=== PATIENT | male | born 1940 | race Caucasian/White ===

== ENCOUNTER 2021-10-31 13:23 | Inpatient (IN) | payer MEDICARE ==
[2021-10-31] MEDS ORDERED: Dexamethasone 10 MG/ML VIAL ONE (13:39)
[2021-10-31 14:16] LABS: #Lymphocytes 0.4 thou/uL (1.20-3.40); #Monocytes 0.1 thou/uL (0.11-0.59); #Neutrophils 2.7 thou/uL (1.40-6.50); %Eosinophils 0.1 % (0.0-10.0); %Lymphocytes 13.4 % (21.0-51.0); %Monocytes 4.2 % (0.0-10.0); %Neutrophils 82.3 % (42.0-75.0); Hemoglobin 9.8 g/dL (14.0-18.0); Mean Corpuscular HGB CONC 34.4 g/dL (32.0-36.0); Mean Corpuscular Hemoglobin 34.2 pg (27.0-31.0); Mean Corpuscular Volume 99.4 fL (78.0-98.0); Platelet Count 175 thou/uL (130-400); RBC Distribution Width 11.7 % (11.5-14.5); Red Blood Cell (RBC) Count 2.85 mill/uL (4.70-6.10); White Blood Cell (WBC) Count 3.3 thou/uL (4.8-10.8)
[2021-10-31 14:39] LABS: ALT (SGPT) 68 U/L (8-55); AST (SGOT) 81 U/L (5-34); Alkaline Phosphatase 84 U/L (40-110); Anion Gap 13 mmol/L (10-20); BUN (Urea Nitrogen) 36 mg/dL (8.4-25.7); Bilirubin, Total 0.6 mg/dL (0.2-1.2); Calc. Creatinine Clearance 0 mL/min (70-130); Calcium 8.4 mg/dL (7.8-10.44); Carbon Dioxide 20 mmol/L (23-31); Chloride 102 mmol/L (98-107); Globulin 3.7 g/dL (2.4-3.5); Glucose 107 mg/dL (83-110); Potassium 4.4 mmol/L (3.5-5.1); Protein, Total 6.7 g/dL (5.8-8.1); Sodium 131 mmol/L (136-145)
[2021-10-31] MEDS ORDERED: Iopamidol-370 76% 500 ML 1 ML ONE (14:41)
[2021-10-31] MEDS ORDERED: Acetaminophen 325 MG TAB PO PRN (21:30)
[2021-10-31] MEDS ORDERED: Sodium Chloride 0.9% 1,000 ML IV SCH (21:30)
[2021-10-31] MEDS ORDERED: Ondansetron PF 4 MG/2 ML Vial IVP PRN (21:30)
[2021-10-31] MEDS ORDERED: Ondansetron ODT 4 MG TAB SL PRN (21:30)
[2021-11-01 07:45] LABS: #Lymphocytes 0.5 thou/uL (1.20-3.40); #Monocytes 0.2 thou/uL (0.11-0.59); #Neutrophils 2.2 thou/uL (1.40-6.50); %Lymphocytes 16.7 % (21.0-51.0); %Monocytes 5.7 % (0.0-10.0); %Neutrophils 77.6 % (42.0-75.0); Hemoglobin 9.8 g/dL (14.0-18.0); Mean Corpuscular HGB CONC 34.6 g/dL (32.0-36.0); Mean Corpuscular Hemoglobin 34.4 pg (27.0-31.0); Mean Corpuscular Volume 99.5 fL (78.0-98.0); Mean Platelet Volume 6.4 fL (7.4-10.4); Platelet Count 170 thou/uL (130-400); RBC Distribution Width 11.5 % (11.5-14.5); Red Blood Cell (RBC) Count 2.84 mill/uL (4.70-6.10); White Blood Cell (WBC) Count 2.9 thou/uL (4.8-10.8)
[2021-11-01 08:04] LABS: Anion Gap 13 mmol/L (10-20); BUN (Urea Nitrogen) 34 mg/dL (8.4-25.7); Calc. Creatinine Clearance 37 mL/min (70-130); Calcium 8.8 mg/dL (7.8-10.44); Carbon Dioxide 20 mmol/L (23-31); Chloride 105 mmol/L (98-107); Glucose 121 mg/dL (83-110); Potassium 4.3 mmol/L (3.5-5.1); Sodium 134 mmol/L (136-145)
[2021-11-01 08:08] LABS: ALT (SGPT) 67 U/L (8-55); AST (SGOT) 76 U/L (5-34); Albumin 2.9 g/dL (3.4-4.8); Alkaline Phosphatase 85 U/L (40-110); Bilirubin, Direct 0.3 mg/dL (0.1-0.3); Bilirubin, Total 0.5 mg/dL (0.2-1.2); Protein, Total 6.8 g/dL (5.8-8.1)
[2021-11-01] MEDS: Dexamethasone 10 MG/ML VIAL SLOW IVP SCH (08:16)
[2021-11-01] MEDS: Ascorbic Acid 500 mg Chewable Tablet PO SCH (08:17)
[2021-11-01] MEDS: Zinc Sulfate 220 MG CAP PO SCH (08:17)
[2021-11-01] MEDS: Enoxaparin Sodium 30 MG/0.3 ML SYRINGE SC SCH (08:17)
[2021-11-01] MEDS ORDERED: Famotidine 20 MG TAB PO SCH (09:00)
[2021-11-01] MEDS ORDERED: Guaifenesin DM 100-10/5 ML UDCUP PO PRN (09:08)
[2021-11-01] MEDS ORDERED: Albuterol Sulfate 2.5 mg/3 ml Neb IPPB PRN (09:10)
[2021-11-01] MEDS ORDERED: REMDESIVIR 200 MG in Sodium Chloride 0.9% 250 ML 210 ML IV SCH (10:15)
[2021-11-01] MEDS: Acetaminophen 325 MG TAB PO PRN (11:18)
[2021-11-01] MEDS: Ondansetron PF 4 MG/2 ML Vial IVP PRN (11:18)
[2021-11-01] MEDS: Ipratropium Bromide 0.06% Nasal Inhaler 15ml EA NARE SCH ×3 (13:00→21:55)
[2021-11-01] MEDS: HYDROcodone/Acetaminophen 5/325 mg Tablet PO PRN (17:10)
[2021-11-01] MEDS ORDERED: Calcium Carbonate 500 MG ChewTAB PO SCH (19:14)
[2021-11-01] MEDS: Tamsulosin HCl 0.4 MG CAP PO SCH (21:55)
[2021-11-01] MEDS: Melatonin 3 MG TAB PO SCH (21:55)
[2021-11-01] MEDS: Atorvastatin Calcium 20 MG TAB PO SCH (21:58)
[2021-11-02] MEDS: Dexamethasone 10 MG/ML VIAL SLOW IVP SCH (09:13)
[2021-11-02] MEDS: Ascorbic Acid 500 mg Chewable Tablet PO SCH (09:13)
[2021-11-02] MEDS: Ipratropium Bromide 0.06% Nasal Inhaler 15ml EA NARE SCH ×4 (09:13→20:06)
[2021-11-02] MEDS: REMDESIVIR 100 MG in Sodium Chloride 0.9% 250 ML 230 ML IV SCH (09:13)
[2021-11-02] MEDS: Enoxaparin Sodium 30 MG/0.3 ML SYRINGE SC SCH (09:14)
[2021-11-02] MEDS: Zinc Sulfate 220 MG CAP PO SCH (09:14)
[2021-11-02] MEDS: Metoprolol Tartrate 50 MG TAB PO SCH (09:14)
[2021-11-02 10:19] LABS: #Lymphocytes 0.7 thou/uL (1.20-3.40); #Monocytes 0.3 thou/uL (0.11-0.59); #Neutrophils 6.7 thou/uL (1.40-6.50); %Eosinophils 0.1 % (0.0-10.0); %Lymphocytes 8.4 % (21.0-51.0); %Monocytes 4.4 % (0.0-10.0); %Neutrophils 87.1 % (42.0-75.0); Mean Corpuscular HGB CONC 33.6 g/dL (32.0-36.0); Mean Corpuscular Hemoglobin 33.8 pg (27.0-31.0); Mean Platelet Volume 6.5 fL (7.4-10.4); Platelet Count 221 thou/uL (130-400); RBC Distribution Width 11.6 % (11.5-14.5); Red Blood Cell (RBC) Count 3.25 mill/uL (4.70-6.10); White Blood Cell (WBC) Count 7.7 thou/uL (4.8-10.8)
[2021-11-02 10:36] LABS: Anion Gap 14 mmol/L (10-20); BUN (Urea Nitrogen) 42 mg/dL (8.4-25.7); Calc. Creatinine Clearance 35 mL/min (70-130); Calcium 9.4 mg/dL (7.8-10.44); Carbon Dioxide 22 mmol/L (23-31); Chloride 107 mmol/L (98-107); Glucose 115 mg/dL (83-110); Potassium 4.3 mmol/L (3.5-5.1); Sodium 139 mmol/L (136-145)
[2021-11-02 10:40] LABS: CRP (Inflammatory) 0.69 mg/dL (= or < 0.5)
[2021-11-02 10:44] LABS: Iron 116 ug/dL (65-175); Iron Binding Capacity, Total 171 mcg/dL (261-462)
[2021-11-02] MEDS: Ondansetron PF 4 MG/2 ML Vial IVP PRN (14:00)
[2021-11-02] MEDS: Benzonatate 100 MG CAP PO PRN (18:21)
[2021-11-02] MEDS: Melatonin 3 MG TAB PO SCH (20:07)
[2021-11-02] MEDS: Tamsulosin HCl 0.4 MG CAP PO SCH (20:07)
[2021-11-03 08:17] LABS: Anion Gap 14 mmol/L (10-20); BUN (Urea Nitrogen) 44 mg/dL (8.4-25.7); Calc. Creatinine Clearance 38 mL/min (70-130); Carbon Dioxide 21 mmol/L (23-31); Chloride 105 mmol/L (98-107); Glucose 107 mg/dL (83-110); Potassium 4.2 mmol/L (3.5-5.1); Sodium 136 mmol/L (136-145)
[2021-11-03 08:36] LABS: #Lymphocytes 0.6 thou/uL (1.20-3.40); #Monocytes 0.4 thou/uL (0.11-0.59); #Neutrophils 5.3 thou/uL (1.40-6.50); %Basophils 0.3 % (0.0-1.0); %Eosinophils 0.1 % (0.0-10.0); %Lymphocytes 9.2 % (21.0-51.0); %Monocytes 5.8 % (0.0-10.0); %Neutrophils 84.6 % (42.0-75.0); Hemoglobin 10.3 g/dL (14.0-18.0); Mean Corpuscular HGB CONC 33.1 g/dL (32.0-36.0); Mean Corpuscular Hemoglobin 33.3 pg (27.0-31.0); Mean Platelet Volume 6.6 fL (7.4-10.4); Platelet Count 190 thou/uL (130-400); RBC Distribution Width 11.6 % (11.5-14.5); Red Blood Cell (RBC) Count 3.09 mill/uL (4.70-6.10); White Blood Cell (WBC) Count 6.3 thou/uL (4.8-10.8)
[2021-11-03] MEDS: Ascorbic Acid 500 mg Chewable Tablet PO SCH (10:01)
[2021-11-03] MEDS: Zinc Sulfate 220 MG CAP PO SCH (10:02)
[2021-11-03] MEDS: Enoxaparin Sodium 40 MG/0.4 ML SYRINGE SC SCH (10:02)
[2021-11-03] MEDS: Metoprolol Tartrate 50 MG TAB PO SCH (10:02)
[2021-11-03] MEDS: Dexamethasone 10 MG/ML VIAL SLOW IVP SCH ×2 (10:03→22:16)
[2021-11-03] MEDS: REMDESIVIR 100 MG in Sodium Chloride 0.9% 250 ML 230 ML IV SCH (10:03)
[2021-11-03] MEDS: Ipratropium Bromide 0.06% Nasal Inhaler 15ml EA NARE SCH (10:03)
[2021-11-03] MEDS: HYDROcodone/Acetaminophen 5/325 mg Tablet PO PRN ×2 (15:04→19:37)
[2021-11-03] MEDS: Tamsulosin HCl 0.4 MG CAP PO SCH (22:16)
[2021-11-03] MEDS: Atorvastatin Calcium 20 MG TAB PO SCH ×2 (22:18→22:27)
[2021-11-03] MEDS: Melatonin 3 MG TAB PO SCH (22:18)
[2021-11-04] MEDS: HYDROcodone/Acetaminophen 5/325 mg Tablet PO PRN ×3 (00:24→21:42)
[2021-11-04] MEDS: Ipratropium Bromide 0.06% Nasal Inhaler 15ml EA NARE SCH ×3 (02:30→10:22)
[2021-11-04 04:03] LABS: Anion Gap 13 mmol/L (10-20); BUN (Urea Nitrogen) 48 mg/dL (8.4-25.7); CRP (Inflammatory) Less than 0.50 mg/dL (= or < 0.5); Calc. Creatinine Clearance 39 mL/min (70-130); Calcium 8.9 mg/dL (7.8-10.44); Carbon Dioxide 22 mmol/L (23-31); Chloride 106 mmol/L (98-107); Glucose 145 mg/dL (83-110); Potassium 4.9 mmol/L (3.5-5.1); Sodium 136 mmol/L (136-145)
[2021-11-04 04:26] LABS: Band 9 % (5-11); Hemoglobin 10.2 g/dL (14.0-18.0); Lymphocytes 7 % (21-51); MDiff Complete? YES; Mean Corpuscular HGB CONC 33.7 g/dL (32.0-36.0); Mean Corpuscular Hemoglobin 33.7 pg (27.0-31.0); Mean Platelet Volume 6.6 fL (7.4-10.4); Monocytes 2 % (0-10); Neutrophil 82 % (42-75); Platelet Count 178 thou/uL (130-400); RBC Distribution Width 11.5 % (11.5-14.5); Red Blood Cell (RBC) Count 3.02 mill/uL (4.70-6.10); White Blood Cell (WBC) Count 4.9 thou/uL (4.8-10.8)
[2021-11-04] MEDS: Ascorbic Acid 500 mg Chewable Tablet PO SCH (10:17)
[2021-11-04] MEDS: Zinc Sulfate 220 MG CAP PO SCH (10:17)
[2021-11-04] MEDS: Metoprolol Tartrate 50 MG TAB PO SCH (10:17)
[2021-11-04] MEDS: Dexamethasone 10 MG/ML VIAL SLOW IVP SCH (10:18)
[2021-11-04] MEDS: Enoxaparin Sodium 40 MG/0.4 ML SYRINGE SC SCH (10:19)
[2021-11-04] MEDS: REMDESIVIR 100 MG in Sodium Chloride 0.9% 250 ML 230 ML IV SCH (13:01)
[2021-11-04] MEDS: Benzonatate 100 MG CAP PO PRN (21:42)
[2021-11-04] MEDS: Tamsulosin HCl 0.4 MG CAP PO SCH (21:42)
[2021-11-04] MEDS: Melatonin 3 MG TAB PO SCH (21:42)
[2021-11-05 04:04] LABS: #Lymphocytes 0.7 thou/uL (1.20-3.40); #Monocytes 0.3 thou/uL (0.11-0.59); #Neutrophils 5.3 thou/uL (1.40-6.50); %Lymphocytes 11.5 % (21.0-51.0); %Monocytes 4.9 % (0.0-10.0); %Neutrophils 83.5 % (42.0-75.0); Hemoglobin 10.4 g/dL (14.0-18.0); Mean Corpuscular HGB CONC 33.9 g/dL (32.0-36.0); Mean Corpuscular Hemoglobin 33.5 pg (27.0-31.0); Mean Corpuscular Volume 98.9 fL (78.0-98.0); Platelet Count 179 thou/uL (130-400); RBC Distribution Width 11.5 % (11.5-14.5); Red Blood Cell (RBC) Count 3.11 mill/uL (4.70-6.10); White Blood Cell (WBC) Count 6.3 thou/uL (4.8-10.8)
[2021-11-05 04:15] LABS: Anion Gap 15 mmol/L (10-20); BUN (Urea Nitrogen) 47 mg/dL (8.4-25.7); CRP (Inflammatory) Less than 0.50 mg/dL (= or < 0.5); Calc. Creatinine Clearance 39 mL/min (70-130); Carbon Dioxide 20 mmol/L (23-31); Chloride 104 mmol/L (98-107); Glucose 122 mg/dL (83-110); Potassium 4.2 mmol/L (3.5-5.1); Sodium 135 mmol/L (136-145)
[2021-11-05] MEDS: HYDROcodone/Acetaminophen 5/325 mg Tablet PO PRN ×3 (06:05→21:33)
[2021-11-05] MEDS: Ipratropium Bromide 0.06% Nasal Inhaler 15ml EA NARE SCH ×5 (09:48→20:34)
[2021-11-05] MEDS: Zinc Sulfate 220 MG CAP PO SCH (10:05)
[2021-11-05] MEDS: REMDESIVIR 100 MG in Sodium Chloride 0.9% 250 ML 230 ML IV SCH (10:05)
[2021-11-05] MEDS: Ascorbic Acid 500 mg Chewable Tablet PO SCH (10:05)
[2021-11-05] MEDS: Enoxaparin Sodium 40 MG/0.4 ML SYRINGE SC SCH (10:06)
[2021-11-05] MEDS: Metoprolol Tartrate 50 MG TAB PO SCH (10:06)
[2021-11-05] MEDS: Dexamethasone 10 MG/ML VIAL SLOW IVP SCH (10:06)
[2021-11-05] MEDS: Tamsulosin HCl 0.4 MG CAP PO SCH (20:07)
[2021-11-05] MEDS: Melatonin 3 MG TAB PO SCH (20:07)
[2021-11-05] MEDS: Atorvastatin Calcium 20 MG TAB PO SCH (20:07)
[2021-11-06] MEDS: HYDROcodone/Acetaminophen 5/325 mg Tablet PO PRN ×3 (03:22→17:53)
[2021-11-06 07:23] LABS: #Lymphocytes 0.7 thou/uL (1.20-3.40); #Monocytes 0.3 thou/uL (0.11-0.59); #Neutrophils 7.4 thou/uL (1.40-6.50); %Basophils 0.1 % (0.0-1.0); %Eosinophils 0.2 % (0.0-10.0); %Lymphocytes 8.2 % (21.0-51.0); %Monocytes 3.6 % (0.0-10.0); Hemoglobin 11.2 g/dL (14.0-18.0); Mean Corpuscular HGB CONC 32.5 g/dL (32.0-36.0); Mean Corpuscular Hemoglobin 32.5 pg (27.0-31.0); Mean Corpuscular Volume 99.9 fL (78.0-98.0); Mean Platelet Volume 7.2 fL (7.4-10.4); Platelet Count 191 thou/uL (130-400); RBC Distribution Width 11.7 % (11.5-14.5); Red Blood Cell (RBC) Count 3.46 mill/uL (4.70-6.10); White Blood Cell (WBC) Count 8.4 thou/uL (4.8-10.8)
[2021-11-06 07:41] LABS: Anion Gap 14 mmol/L (10-20); BUN (Urea Nitrogen) 49 mg/dL (8.4-25.7); Calc. Creatinine Clearance 37 mL/min (70-130); Carbon Dioxide 22 mmol/L (23-31); Chloride 104 mmol/L (98-107); Glucose 103 mg/dL (83-110); Potassium 4.1 mmol/L (3.5-5.1); Sodium 136 mmol/L (136-145)
[2021-11-06] MEDS: Metoprolol Tartrate 50 MG TAB PO SCH (08:18)
[2021-11-06] MEDS: Dexamethasone 10 MG/ML VIAL SLOW IVP SCH (08:18)
[2021-11-06] MEDS: Ascorbic Acid 500 mg Chewable Tablet PO SCH (08:18)
[2021-11-06] MEDS: Zinc Sulfate 220 MG CAP PO SCH (08:18)
[2021-11-06] MEDS: Enoxaparin Sodium 40 MG/0.4 ML SYRINGE SC SCH (08:19)
[2021-11-06] MEDS: Ipratropium Bromide 0.06% Nasal Inhaler 15ml EA NARE SCH ×3 (12:13→21:20)
[2021-11-06] MEDS: ALPRAZolam 0.25 MG TAB PO PRN (17:53)
[2021-11-06] MEDS: Tamsulosin HCl 0.4 MG CAP PO SCH (21:24)
[2021-11-06] MEDS: Melatonin 3 MG TAB PO SCH (21:25)
[2021-11-07] MEDS: Albuterol 200 PUFF (6.7GM INHALER) INH PRN ×2 (00:53→09:10)
[2021-11-07] MEDS: ALPRAZolam 0.25 MG TAB PO PRN ×3 (01:08→15:43)
[2021-11-07] MEDS: Zinc Sulfate 220 MG CAP PO SCH (09:09)
[2021-11-07] MEDS: Metoprolol Tartrate 50 MG TAB PO SCH (09:09)
[2021-11-07] MEDS: Enoxaparin Sodium 40 MG/0.4 ML SYRINGE SC SCH (09:09)
[2021-11-07] MEDS: Ascorbic Acid 500 mg Chewable Tablet PO SCH ×2 (09:09→09:12)
[2021-11-07] MEDS: Dexamethasone 10 MG/ML VIAL SLOW IVP SCH (09:09)
[2021-11-07] MEDS: Ipratropium Bromide 0.06% Nasal Inhaler 15ml EA NARE SCH ×4 (09:11→21:02)
[2021-11-07 12:36] LABS: #Lymphocytes 0.3 thou/uL (1.20-3.40); #Monocytes 0.2 thou/uL (0.11-0.59); #Neutrophils 6.1 thou/uL (1.40-6.50); %Basophils 0.1 % (0.0-1.0); %Eosinophils 0.2 % (0.0-10.0); %Lymphocytes 4.5 % (21.0-51.0); %Monocytes 2.9 % (0.0-10.0); %Neutrophils 92.4 % (42.0-75.0); Hemoglobin 10.9 g/dL (14.0-18.0); Mean Corpuscular HGB CONC 32.3 g/dL (32.0-36.0); Mean Corpuscular Hemoglobin 32.5 pg (27.0-31.0); Mean Platelet Volume 7.8 fL (7.4-10.4); Platelet Count 183 thou/uL (130-400); Red Blood Cell (RBC) Count 3.37 mill/uL (4.70-6.10); White Blood Cell (WBC) Count 6.6 thou/uL (4.8-10.8)
[2021-11-07 13:09] LABS: Anion Gap 16 mmol/L (10-20); BUN (Urea Nitrogen) 50 mg/dL (8.4-25.7); Calc. Creatinine Clearance 36 mL/min (70-130); Calcium 9.2 mg/dL (7.8-10.44); Carbon Dioxide 20 mmol/L (23-31); Chloride 106 mmol/L (98-107); Glucose 146 mg/dL (83-110); Potassium 4.2 mmol/L (3.5-5.1); Sodium 138 mmol/L (136-145)
[2021-11-07] MEDS: HYDROcodone/Acetaminophen 5/325 mg Tablet PO PRN ×2 (15:43→21:01)
[2021-11-07] MEDS: Tamsulosin HCl 0.4 MG CAP PO SCH (21:01)
[2021-11-07] MEDS: Melatonin 3 MG TAB PO SCH (21:01)
[2021-11-07] MEDS: Atorvastatin Calcium 20 MG TAB PO SCH (21:02)
[2021-11-08] MEDS: HYDROcodone/Acetaminophen 5/325 mg Tablet PO PRN (07:37)
[2021-11-08] MEDS: Enoxaparin Sodium 40 MG/0.4 ML SYRINGE SC SCH (10:53)
[2021-11-08] MEDS: Ascorbic Acid 500 mg Chewable Tablet PO SCH (10:54)
[2021-11-08] MEDS: Acetaminophen 325 MG TAB PO PRN ×2 (10:55→22:01)
[2021-11-08] MEDS: Zinc Sulfate 220 MG CAP PO SCH (10:56)
[2021-11-08] MEDS: Metoprolol Tartrate 50 MG TAB PO SCH (10:57)
[2021-11-08] MEDS: Dexamethasone 10 MG/ML VIAL SLOW IVP SCH (10:59)
[2021-11-08] MEDS: Ipratropium Bromide 0.06% Nasal Inhaler 15ml EA NARE SCH ×4 (11:00→22:02)
[2021-11-08 15:42] LABS: #Lymphocytes 0.3 thou/uL (1.20-3.40); #Monocytes 0.1 thou/uL (0.11-0.59); #Neutrophils 5.5 thou/uL (1.40-6.50); %Eosinophils 0.4 % (0.0-10.0); %Lymphocytes 5.2 % (21.0-51.0); %Monocytes 1.9 % (0.0-10.0); %Neutrophils 92.5 % (42.0-75.0); Hemoglobin 10.7 g/dL (14.0-18.0); Mean Corpuscular HGB CONC 32.6 g/dL (32.0-36.0); Mean Corpuscular Hemoglobin 33.1 pg (27.0-31.0); Mean Platelet Volume 7.3 fL (7.4-10.4); Platelet Count 158 thou/uL (130-400); RBC Distribution Width 12.4 % (11.5-14.5); Red Blood Cell (RBC) Count 3.23 mill/uL (4.70-6.10); White Blood Cell (WBC) Count 5.9 thou/uL (4.8-10.8)
[2021-11-08 16:01] LABS: Anion Gap 13 mmol/L (10-20); BUN (Urea Nitrogen) 49 mg/dL (8.4-25.7); Calc. Creatinine Clearance 35 mL/min (70-130); Calcium 8.8 mg/dL (7.8-10.44); Carbon Dioxide 22 mmol/L (23-31); Chloride 106 mmol/L (98-107); Glucose 145 mg/dL (83-110); Potassium 4.6 mmol/L (3.5-5.1); Sodium 136 mmol/L (136-145)
[2021-11-08] MEDS: Tamsulosin HCl 0.4 MG CAP PO SCH (22:02)
[2021-11-08] MEDS: Melatonin 3 MG TAB PO SCH (22:02)
[2021-11-09] MEDS: ALPRAZolam 0.25 MG TAB PO PRN (05:49)
[2021-11-09] MEDS: Acetaminophen 325 MG TAB PO PRN ×2 (05:49→13:48)
[2021-11-09] MEDS: Ascorbic Acid 500 mg Chewable Tablet PO SCH (09:18)
[2021-11-09] MEDS: Zinc Sulfate 220 MG CAP PO SCH (09:18)
[2021-11-09] MEDS: Cholecalciferol 1,000 UNITS (25 MCG) TAB PO SCH (09:18)
[2021-11-09] MEDS: Ipratropium Bromide 0.06% Nasal Inhaler 15ml EA NARE SCH ×3 (09:20→17:49)
[2021-11-09] MEDS: Enoxaparin Sodium 40 MG/0.4 ML SYRINGE SC SCH (09:20)
[2021-11-09] MEDS: Metoprolol Tartrate 50 MG TAB PO SCH (09:21)
[2021-11-09] MEDS: Acetaminophen/Codeine 30-300mg Tablet PO PRN (10:55)
[2021-11-09] MEDS: Dextrose 5 % And 0.9 % NaCl 1,000 ML IV SCH (17:49)
[2021-11-09] MEDS: Melatonin 3 MG TAB PO SCH (20:45)
[2021-11-09] MEDS: Tamsulosin HCl 0.4 MG CAP PO SCH (20:45)
[2021-11-09] MEDS: HYDROcodone/Acetaminophen 5/325 mg Tablet PO PRN (20:45)
[2021-11-09] MEDS: Atorvastatin Calcium 20 MG TAB PO SCH (20:45)
[2021-11-10 04:46] LABS: #Lymphocytes 0.8 thou/uL (1.20-3.40); #Monocytes 0.2 thou/uL (0.11-0.59); #Neutrophils 5.7 thou/uL (1.40-6.50); %Eosinophils 0.6 % (0.0-10.0); %Lymphocytes 11.4 % (21.0-51.0); %Monocytes 3.6 % (0.0-10.0); %Neutrophils 84.4 % (42.0-75.0); Hemoglobin 10.2 g/dL (14.0-18.0); Mean Corpuscular HGB CONC 33.5 g/dL (32.0-36.0); Mean Corpuscular Hemoglobin 33.8 pg (27.0-31.0); Mean Platelet Volume 7.3 fL (7.4-10.4); Platelet Count 145 thou/uL (130-400); RBC Distribution Width 12.6 % (11.5-14.5); White Blood Cell (WBC) Count 6.7 thou/uL (4.8-10.8)
[2021-11-10 04:51] LABS: Anion Gap 12 mmol/L (10-20); BUN (Urea Nitrogen) 36 mg/dL (8.4-25.7); Calc. Creatinine Clearance 42 mL/min (70-130); Calcium 8.5 mg/dL (7.8-10.44); Carbon Dioxide 22 mmol/L (23-31); Chloride 103 mmol/L (98-107); Glucose 102 mg/dL (83-110); Sodium 133 mmol/L (136-145)
[2021-11-10] MEDS: Ipratropium Bromide 0.06% Nasal Inhaler 15ml EA NARE SCH ×4 (07:26→17:34)
[2021-11-10] MEDS: Zinc Sulfate 220 MG CAP PO SCH (09:56)
[2021-11-10] MEDS: Senokot 8.6 MG TAB PO PRN (09:56)
[2021-11-10] MEDS: Cholecalciferol 1,000 UNITS (25 MCG) TAB PO SCH (09:56)
[2021-11-10] MEDS: Ascorbic Acid 500 mg Chewable Tablet PO SCH (09:56)
[2021-11-10] MEDS: HYDROcodone/Acetaminophen 5/325 mg Tablet PO PRN ×2 (09:57→20:13)
[2021-11-10] MEDS: Enoxaparin Sodium 40 MG/0.4 ML SYRINGE SC SCH (09:58)
[2021-11-10] MEDS: Dextrose 5 % And 0.9 % NaCl 1,000 ML IV SCH ×2 (09:59→23:30)
[2021-11-10] MEDS: Metoprolol Tartrate 50 MG TAB PO SCH (10:00)
[2021-11-10] MEDS ORDERED: Lidocaine 5% Patch TD SCH (14:00)
[2021-11-10] MEDS: Lidocaine 5% Patch TD SCH (17:34)
[2021-11-10] MEDS: Tamsulosin HCl 0.4 MG CAP PO SCH (20:13)
[2021-11-10] MEDS: ALPRAZolam 0.25 MG TAB PO PRN (20:13)
[2021-11-10] MEDS: Melatonin 3 MG TAB PO SCH (20:13)
[2021-11-10] MEDS: Transdermal Patch Removal TOP SCH (20:14)
[2021-11-10] MEDS ORDERED: Cyclobenzaprine 10 MG TAB PO SCH (22:45)
[2021-11-11 03:49] LABS: #Lymphocytes 0.8 thou/uL (1.20-3.40); #Monocytes 0.3 thou/uL (0.11-0.59); #Neutrophils 4.5 thou/uL (1.40-6.50); %Basophils 0.3 % (0.0-1.0); %Eosinophils 0.4 % (0.0-10.0); %Lymphocytes 13.7 % (21.0-51.0); %Monocytes 5.4 % (0.0-10.0); %Neutrophils 80.2 % (42.0-75.0); Hemoglobin 8.9 g/dL (14.0-18.0); Mean Corpuscular HGB CONC 33.1 g/dL (32.0-36.0); Mean Corpuscular Hemoglobin 33.6 pg (27.0-31.0); Mean Platelet Volume 6.5 fL (7.4-10.4); Platelet Count 104 thou/uL (130-400); RBC Distribution Width 12.5 % (11.5-14.5); Red Blood Cell (RBC) Count 2.66 mill/uL (4.70-6.10); White Blood Cell (WBC) Count 5.6 thou/uL (4.8-10.8)
[2021-11-11 04:01] LABS: Anion Gap 11 mmol/L (10-20); BUN (Urea Nitrogen) 21 mg/dL (8.4-25.7); Calc. Creatinine Clearance 51 mL/min (70-130); Carbon Dioxide 23 mmol/L (23-31); Chloride 104 mmol/L (98-107); Glucose 98 mg/dL (83-110); Potassium 3.8 mmol/L (3.5-5.1); Sodium 134 mmol/L (136-145)
[2021-11-11] MEDS ORDERED: Lidocaine 1% (PF) 30 ML VIAL ONE (09:42)
[2021-11-11] MEDS: Ipratropium Bromide 0.06% Nasal Inhaler 15ml EA NARE SCH ×4 (10:35→18:30)
[2021-11-11] MEDS: Enoxaparin Sodium 40 MG/0.4 ML SYRINGE SC SCH (10:42)
[2021-11-11] MEDS: Metoprolol Tartrate 50 MG TAB PO SCH (10:42)
[2021-11-11] MEDS: Zinc Sulfate 220 MG CAP PO SCH (10:44)
[2021-11-11] MEDS: Cholecalciferol 1,000 UNITS (25 MCG) TAB PO SCH (10:44)
[2021-11-11] MEDS: Ascorbic Acid 500 mg Chewable Tablet PO SCH (10:44)
[2021-11-11] MEDS: Lidocaine 5% Patch TD SCH (10:45)
[2021-11-11] MEDS: Dextrose 5 % And 0.9 % NaCl 1,000 ML IV SCH ×2 (13:25→13:36)
[2021-11-11] MEDS: ALPRAZolam 0.25 MG TAB PO PRN (20:36)
[2021-11-11] MEDS: Melatonin 3 MG TAB PO SCH (20:36)
[2021-11-11] MEDS: Tamsulosin HCl 0.4 MG CAP PO SCH (20:36)
[2021-11-11] MEDS: Transdermal Patch Removal TOP SCH (20:37)
[2021-11-11] MEDS: Atorvastatin Calcium 20 MG TAB PO SCH (20:37)
[2021-11-12 04:00] LABS: #Lymphocytes 0.8 thou/uL (1.20-3.40); #Monocytes 0.4 thou/uL (0.11-0.59); #Neutrophils 5.3 thou/uL (1.40-6.50); %Eosinophils 0.4 % (0.0-10.0); %Lymphocytes 11.7 % (21.0-51.0); %Monocytes 6.6 % (0.0-10.0); %Neutrophils 81.3 % (42.0-75.0); Hemoglobin 9.2 g/dL (14.0-18.0); Mean Corpuscular HGB CONC 33.1 g/dL (32.0-36.0); Mean Corpuscular Hemoglobin 33.3 pg (27.0-31.0); Mean Platelet Volume 7.1 fL (7.4-10.4); Platelet Count 112 thou/uL (130-400); RBC Distribution Width 12.5 % (11.5-14.5); Red Blood Cell (RBC) Count 2.77 mill/uL (4.70-6.10); White Blood Cell (WBC) Count 6.5 thou/uL (4.8-10.8)
[2021-11-12 04:17] LABS: Anion Gap 8 mmol/L (10-20); BUN (Urea Nitrogen) 20 mg/dL (8.4-25.7); Calc. Creatinine Clearance 51 mL/min (70-130); Calcium 8.4 mg/dL (7.8-10.44); Carbon Dioxide 23 mmol/L (23-31); Chloride 105 mmol/L (98-107); Glucose 106 mg/dL (83-110); Potassium 3.9 mmol/L (3.5-5.1); Sodium 132 mmol/L (136-145)
[2021-11-12] MEDS: Ipratropium Bromide 0.06% Nasal Inhaler 15ml EA NARE SCH ×5 (09:03→21:28)
[2021-11-12] MEDS: Lidocaine 5% Patch TD SCH (09:16)
[2021-11-12] MEDS: Enoxaparin Sodium 40 MG/0.4 ML SYRINGE SC SCH (09:16)
[2021-11-12] MEDS: Metoprolol Tartrate 50 MG TAB PO SCH (09:17)
[2021-11-12] MEDS: Ascorbic Acid 500 mg Chewable Tablet PO SCH (09:17)
[2021-11-12] MEDS: Zinc Sulfate 220 MG CAP PO SCH (09:18)
[2021-11-12] MEDS: Dextrose 5 % And 0.9 % NaCl 1,000 ML IV SCH (09:18)
[2021-11-12] MEDS: Cholecalciferol 1,000 UNITS (25 MCG) TAB PO SCH (09:18)
[2021-11-12] MEDS ORDERED: Bisacodyl 5 MG TAB PO SCH (19:15)
[2021-11-12] MEDS: Acetaminophen/Codeine 30-300mg Tablet PO PRN (21:27)
[2021-11-12] MEDS: ALPRAZolam 0.25 MG TAB PO PRN (21:28)
[2021-11-12] MEDS: Transdermal Patch Removal TOP SCH (21:28)
[2021-11-12] MEDS: Tamsulosin HCl 0.4 MG CAP PO SCH (21:28)
[2021-11-12] MEDS: Melatonin 3 MG TAB PO SCH (21:28)
[2021-11-13 03:44] LABS: #Lymphocytes 1.1 thou/uL (1.20-3.40); #Monocytes 0.6 thou/uL (0.11-0.59); #Neutrophils 5.3 thou/uL (1.40-6.50); %Basophils 0.1 % (0.0-1.0); %Eosinophils 0.7 % (0.0-10.0); %Lymphocytes 15.9 % (21.0-51.0); %Monocytes 8.9 % (0.0-10.0); %Neutrophils 74.5 % (42.0-75.0); Hemoglobin 9.5 g/dL (14.0-18.0); Mean Corpuscular HGB CONC 32.2 g/dL (32.0-36.0); Mean Corpuscular Hemoglobin 32.5 pg (27.0-31.0); Mean Platelet Volume 6.6 fL (7.4-10.4); Platelet Count 132 thou/uL (130-400); RBC Distribution Width 12.6 % (11.5-14.5); Red Blood Cell (RBC) Count 2.93 mill/uL (4.70-6.10); White Blood Cell (WBC) Count 7.1 thou/uL (4.8-10.8)
[2021-11-13 04:05] LABS: Anion Gap 11 mmol/L (10-20); BUN (Urea Nitrogen) 23 mg/dL (8.4-25.7); Calc. Creatinine Clearance 47 mL/min (70-130); Calcium 8.5 mg/dL (7.8-10.44); Carbon Dioxide 22 mmol/L (23-31); Chloride 106 mmol/L (98-107); Glucose 101 mg/dL (83-110); Potassium 4.2 mmol/L (3.5-5.1); Sodium 135 mmol/L (136-145)
[2021-11-13] MEDS: Enoxaparin Sodium 40 MG/0.4 ML SYRINGE SC SCH (10:19)
[2021-11-13] MEDS: Lidocaine 5% Patch TD SCH (10:19)
[2021-11-13] MEDS: Metoprolol Tartrate 50 MG TAB PO SCH (10:20)
[2021-11-13] MEDS: Zinc Sulfate 220 MG CAP PO SCH (10:20)
[2021-11-13] MEDS: Cholecalciferol 1,000 UNITS (25 MCG) TAB PO SCH (10:21)
[2021-11-13] MEDS: Ascorbic Acid 500 mg Chewable Tablet PO SCH (10:22)
[2021-11-13] MEDS: Ipratropium Bromide 0.06% Nasal Inhaler 15ml EA NARE SCH ×4 (10:24→22:45)
[2021-11-13] MEDS: Senokot 8.6 MG TAB PO PRN (10:29)
[2021-11-13 10:38] VITALS: BMI 21.5
[2021-11-13] MEDS: Dextrose 5 % And 0.9 % NaCl 1,000 ML IV SCH (17:36)
[2021-11-13] MEDS ORDERED: Fleet Enema 133 ML BOT PR SCH (22:30)
[2021-11-13] MEDS: Tamsulosin HCl 0.4 MG CAP PO SCH (22:44)
[2021-11-13] MEDS: ALPRAZolam 0.25 MG TAB PO PRN (22:44)
[2021-11-13] MEDS: Melatonin 3 MG TAB PO SCH (22:44)
[2021-11-13] MEDS: Acetaminophen/Codeine 30-300mg Tablet PO PRN (22:44)
[2021-11-13] MEDS: Transdermal Patch Removal TOP SCH (22:45)
[2021-11-13] MEDS: Atorvastatin Calcium 20 MG TAB PO SCH (22:45)
[2021-11-14] MEDS: Cholecalciferol 1,000 UNITS (25 MCG) TAB PO SCH (10:07)
[2021-11-14] MEDS: Zinc Sulfate 220 MG CAP PO SCH (10:09)
[2021-11-14] MEDS: Metoprolol Tartrate 50 MG TAB PO SCH (10:09)
[2021-11-14] MEDS: Lidocaine 5% Patch TD SCH (10:10)
[2021-11-14] MEDS: Ipratropium Bromide 0.06% Nasal Inhaler 15ml EA NARE SCH ×4 (10:10→21:05)
[2021-11-14] MEDS: Ascorbic Acid 500 mg Chewable Tablet PO SCH (10:10)
[2021-11-14] MEDS: Enoxaparin Sodium 40 MG/0.4 ML SYRINGE SC SCH (10:10)
[2021-11-14] MEDS: ALPRAZolam 0.25 MG TAB PO PRN (21:05)
[2021-11-14] MEDS: Dextrose 5 % And 0.9 % NaCl 1,000 ML IV SCH (21:05)
[2021-11-14] MEDS: Melatonin 3 MG TAB PO SCH (21:05)
[2021-11-14] MEDS: Tamsulosin HCl 0.4 MG CAP PO SCH (21:05)
[2021-11-14] MEDS: Transdermal Patch Removal TOP SCH (22:00)
[2021-11-15] MEDS: Acetaminophen 325 MG TAB PO PRN ×3 (01:05→21:21)
[2021-11-15] MEDS: Senokot 8.6 MG TAB PO PRN (01:05)
[2021-11-15] MEDS: Enoxaparin Sodium 40 MG/0.4 ML SYRINGE SC SCH (08:18)
[2021-11-15] MEDS: Metoprolol Tartrate 50 MG TAB PO SCH (08:20)
[2021-11-15] MEDS: Zinc Sulfate 220 MG CAP PO SCH (08:20)
[2021-11-15] MEDS: Lidocaine 5% Patch TD SCH (08:22)
[2021-11-15] MEDS: Ipratropium Bromide 0.06% Nasal Inhaler 15ml EA NARE SCH ×4 (08:24→21:22)
[2021-11-15] MEDS: Cholecalciferol 1,000 UNITS (25 MCG) TAB PO SCH (08:25)
[2021-11-15] MEDS: Ascorbic Acid 500 mg Chewable Tablet PO SCH (08:25)
[2021-11-15] MEDS: Dextrose 5 % And 0.9 % NaCl 1,000 ML IV SCH (15:58)
[2021-11-15] MEDS: Dicyclomine 10 MG CAP PO SCH ×2 (16:37→21:21)
[2021-11-15] MEDS: ALPRAZolam 0.25 MG TAB PO PRN ×2 (18:32→21:21)
[2021-11-15] MEDS: Tamsulosin HCl 0.4 MG CAP PO SCH (21:20)
[2021-11-15] MEDS: Melatonin 3 MG TAB PO SCH (21:20)
[2021-11-15] MEDS: Transdermal Patch Removal TOP SCH (21:22)
[2021-11-15] MEDS: Atorvastatin Calcium 20 MG TAB PO SCH (21:24)
[2021-11-16] MEDS: Acetaminophen 325 MG TAB PO PRN (05:44)
[2021-11-16 07:58] LABS: Anion Gap 12 mmol/L (10-20); BUN (Urea Nitrogen) 20 mg/dL (8.4-25.7); Calc. Creatinine Clearance 42 mL/min (70-130); Calcium 8.7 mg/dL (7.8-10.44); Carbon Dioxide 19 mmol/L (23-31); Chloride 108 mmol/L (98-107); Glucose 102 mg/dL (83-110); Potassium 4.5 mmol/L (3.5-5.1); Sodium 134 mmol/L (136-145)
[2021-11-16] MEDS: Metoprolol Tartrate 50 MG TAB PO SCH (08:55)
[2021-11-16] MEDS: Cholecalciferol 1,000 UNITS (25 MCG) TAB PO SCH (08:55)
[2021-11-16] MEDS: Polyethylene Glycol 3350 17 GM Packet PO SCH (08:55)
[2021-11-16] MEDS: Ascorbic Acid 500 mg Chewable Tablet PO SCH (08:56)
[2021-11-16] MEDS: Ipratropium Bromide 0.06% Nasal Inhaler 15ml EA NARE SCH ×4 (08:56→20:14)
[2021-11-16] MEDS: Enoxaparin Sodium 40 MG/0.4 ML SYRINGE SC SCH (08:56)
[2021-11-16] MEDS: Zinc Sulfate 220 MG CAP PO SCH (08:56)
[2021-11-16] MEDS: Dicyclomine 10 MG CAP PO SCH ×3 (08:56→17:14)
[2021-11-16] MEDS: Lidocaine 5% Patch TD SCH (09:04)
[2021-11-16] MEDS: Dextrose 5 % And 0.9 % NaCl 1,000 ML IV SCH ×2 (09:11→20:07)
[2021-11-16 10:20] LABS: #Lymphocytes 0.8 thou/uL (1.20-3.40); #Monocytes 0.8 thou/uL (0.11-0.59); #Neutrophils 6.4 thou/uL (1.40-6.50); %Basophils 0.2 % (0.0-1.0); %Eosinophils 0.2 % (0.0-10.0); %Lymphocytes 9.9 % (21.0-51.0); %Monocytes 9.8 % (0.0-10.0); %Neutrophils 79.9 % (42.0-75.0); Mean Corpuscular Hemoglobin 34.9 pg (27.0-31.0); Mean Platelet Volume 6.7 fL (7.4-10.4); Platelet Count 110 thou/uL (130-400); RBC Distribution Width 12.7 % (11.5-14.5)
[2021-11-16] MEDS ORDERED: Electrolyte Replacement Protocol 1 EACH FS SCH (19:45)
[2021-11-16] MEDS: Senokot S 8.6-50 MG TAB PO SCH (20:08)
[2021-11-16] MEDS: Tamsulosin HCl 0.4 MG CAP PO SCH (20:14)
[2021-11-16] MEDS: ALPRAZolam 0.25 MG TAB PO PRN (20:15)
[2021-11-16] MEDS: Melatonin 3 MG TAB PO SCH (20:15)
[2021-11-17] MEDS: Multivit, Therapeutic 1 TAB PO SCH (08:31)
[2021-11-17] MEDS: Aspirin 81 mg Enteric Coated Tablet PO SCH (08:31)
[2021-11-17] MEDS: Cholecalciferol 1,000 UNITS (25 MCG) TAB PO SCH (08:31)
[2021-11-17] MEDS: Senokot S 8.6-50 MG TAB PO SCH ×2 (08:31→20:03)
[2021-11-17] MEDS: Metoprolol Tartrate 50 MG TAB PO SCH (08:32)
[2021-11-17] MEDS: Zinc Sulfate 220 MG CAP PO SCH (08:32)
[2021-11-17] MEDS: Ascorbic Acid 500 mg Chewable Tablet PO SCH (08:32)
[2021-11-17] MEDS: Polyethylene Glycol 3350 17 GM Packet PO SCH (08:32)
[2021-11-17] MEDS: Enoxaparin Sodium 40 MG/0.4 ML SYRINGE SC SCH (08:33)
[2021-11-17 09:04] LABS: Anion Gap 10 mmol/L (10-20); BUN (Urea Nitrogen) 16 mg/dL (8.4-25.7); CRP (Inflammatory) 1.26 mg/dL (= or < 0.5); Calc. Creatinine Clearance 52 mL/min (70-130); Calcium 8.3 mg/dL (7.8-10.44); Carbon Dioxide 23 mmol/L (23-31); Chloride 108 mmol/L (98-107); Glucose 95 mg/dL (83-110); Magnesium 1.8 mg/dL (1.6-2.6); Phosphorus 2.7 mg/dL (2.3-4.7); Potassium 3.6 mmol/L (3.5-5.1); Sodium 137 mmol/L (136-145)
[2021-11-17 09:05] LABS: #Lymphocytes 0.8 thou/uL (1.20-3.40); #Monocytes 0.6 thou/uL (0.11-0.59); #Neutrophils 3.6 thou/uL (1.40-6.50); %Eosinophils 0.9 % (0.0-10.0); %Lymphocytes 15.7 % (21.0-51.0); %Monocytes 12.2 % (0.0-10.0); %Neutrophils 71.2 % (42.0-75.0); Hemoglobin 7.5 g/dL (14.0-18.0); Mean Corpuscular HGB CONC 32.7 g/dL (32.0-36.0); Mean Corpuscular Hemoglobin 33.8 pg (27.0-31.0); Mean Platelet Volume 6.9 fL (7.4-10.4); Platelet Count 107 thou/uL (130-400); Red Blood Cell (RBC) Count 2.21 mill/uL (4.70-6.10); White Blood Cell (WBC) Count 5.1 thou/uL (4.8-10.8)
[2021-11-17] MEDS ORDERED: Magnesium 2 GM/50 ML 2 GM in Premix Bag 1 BAG IVPB SCH (10:00)
[2021-11-17] MEDS: Ipratropium Bromide 0.06% Nasal Inhaler 15ml EA NARE SCH ×2 (17:52→20:15)
[2021-11-17] MEDS: Dextrose 5 % And 0.9 % NaCl 1,000 ML IV SCH (17:53)
[2021-11-17] MEDS: Tamsulosin HCl 0.4 MG CAP PO SCH (20:15)
[2021-11-17] MEDS: ALPRAZolam 0.25 MG TAB PO PRN (20:15)
[2021-11-17] MEDS: Melatonin 3 MG TAB PO SCH (20:15)
[2021-11-17] MEDS: Atorvastatin Calcium 20 MG TAB PO SCH (20:15)
[2021-11-18 08:59] VITALS: BP 118/70; TEMP 98.2
[2021-11-18] MEDS ORDERED: Magnesium Sulfate 2 GM in Sodium Chloride 0.9% 100 ML IVPB SCH (09:00)
[2021-11-18] MEDS ORDERED: Magnesium 2 GM/50 ML 2 GM in Premix Bag 1 BAG IVPB SCH (09:00)
[2021-11-18] MEDS: Aspirin 81 mg Enteric Coated Tablet PO SCH (10:00)
[2021-11-18] MEDS: Metoprolol Tartrate 50 MG TAB PO SCH (10:00)
[2021-11-18] MEDS: Ascorbic Acid 500 mg Chewable Tablet PO SCH (10:01)
[2021-11-18] MEDS: Zinc Sulfate 220 MG CAP PO SCH (10:01)
[2021-11-18] MEDS: Multivit, Therapeutic 1 TAB PO SCH (10:01)
[2021-11-18] MEDS: Cholecalciferol 1,000 UNITS (25 MCG) TAB PO SCH (10:01)
[2021-11-18] MEDS: Senokot S 8.6-50 MG TAB PO SCH (10:01)
[2021-11-18] MEDS: Ipratropium Bromide 0.06% Nasal Inhaler 15ml EA NARE SCH ×3 (10:02→16:43)
[2021-11-18] MEDS: Enoxaparin Sodium 40 MG/0.4 ML SYRINGE SC SCH (10:02)
[2021-11-18] MEDS: Polyethylene Glycol 3350 17 GM Packet PO SCH (10:02)
[2021-11-18 10:18] LABS: Hemoglobin 8.5 g/dL (14.0-18.0); Platelet Count 141 thou/uL (130-400)
== END 2021-11-18 17:15 | disposition home or self-care (01) | DRG 177 ==
LOC: ERS 13:23 → ERHOLD 15:25 → T4-A 21:08 → IMCU/EMU 11-03 11:45 → T4-B 11-14 20:30
PROVIDERS: ADMIT Family Medicine; ATTEND Internal Medicine
PROC: XW033E5 Introduction of Remdesivir Anti-infective into Peripheral Vein, Percutaneous Approach, New Technology Group 5 (ICD-10-PCS; 2021-11-01)
PROC: 3E0333Z Introduction of Anti-inflammatory into Peripheral Vein, Percutaneous Approach (ICD-10-PCS; 2021-11-01)
PROC: 8E0ZXY6 Isolation (ICD-10-PCS; 2021-11-01)
PROC: 0W9930Z Drainage of Right Pleural Cavity with Drainage Device, Percutaneous Approach (ICD-10-PCS; principal; 2021-11-03)
PROC: 0T9B70Z Drainage of Bladder with Drainage Device, Via Natural or Artificial Opening (ICD-10-PCS; 2021-11-03)
DX: U07.1 COVID-19 (principal); J12.82 Pneumonia due to coronavirus disease 2019; J96.01 Acute respiratory failure with hypoxia; J86.0 Pyothorax with fistula; N17.9 Acute kidney failure, unspecified; T85.698A Other mechanical complication of other specified internal prosthetic devices, implants and grafts, initial encounter; E87.1 Hypo-osmolality and hyponatremia; E44.0 Moderate protein-calorie malnutrition; E78.5 Hyperlipidemia, unspecified; L89.152 Pressure ulcer of sacral region, stage 2; I25.10 Atherosclerotic heart disease of native coronary artery without angina pectoris; K21.9 Gastro-esophageal reflux disease without esophagitis; R74.8 Abnormal levels of other serum enzymes; D50.9 Iron deficiency anemia, unspecified; I12.9 Hypertensive chronic kidney disease with stage 1 through stage 4 chronic kidney disease, or unspecified chronic kidney disease; N18.2 Chronic kidney disease, stage 2 (mild); J43.9 Emphysema, unspecified; K59.00 Constipation, unspecified; R53.81 Other malaise; E83.42 Hypomagnesemia; N40.0 Benign prostatic hyperplasia without lower urinary tract symptoms; Z79.899 Other long term (current) drug therapy; Z95.1 Presence of aortocoronary bypass graft; Z87.891 Personal history of nicotine dependence; Z68.21 Body mass index [BMI] 21.0-21.9, adult
CPT/HCPCS: 36415; 36416; 71045; 71275; 74018; 80048; 80053; 80076; 82607; 82746; 83540; 83550; 83735; 83880; 84100; 84484; 85014; 85018; 85025; 85049; 86140; 93005; 96374; J0248; J1100; J1650; J2001; J2405; J3475; J7042; J7050; Q9967

== ENCOUNTER 2025-04-30 16:31 | Inpatient (IN) | payer MEDICARE ==
[2025-04-30] MEDS ORDERED: Ondansetron PF 4 MG/2 ML Vial ONE (17:05)
[2025-04-30] MEDS ORDERED: Electrolyte Replacement Protocol 1 EACH FS SCH (18:45)
[2025-04-30] MEDS: Ketorolac Tromethamine 30 MG (1 mL) VIAL IVP PRN (20:24)
[2025-05-01] MEDS: Ketorolac Tromethamine 30 MG (1 mL) VIAL IVP SCH (01:32)
[2025-05-01 05:26] LABS: Anion Gap 16 mmol/L (10-20); BUN (Urea Nitrogen) 49 mg/dL (8.4-25.7); Calc. Creatinine Clearance 20 mL/min (70-130); Calcium 9.0 mg/dL (7.8-10.44); Carbon Dioxide 18 mmol/L (23-31); Chloride 108 mmol/L (98-107); Glucose 97 mg/dL (83-110); Potassium 4.2 mmol/L (3.5-5.1); Sodium 138 mmol/L (136-145)
[2025-05-01 05:35] LABS: Hematocrit 29.4 % (42.0-52.0); Hemoglobin 9.7 g/dL (14.0-18.0); Mean Corpuscular Hemoglobin 33.6 pg (27.0-31.0); Mean Corpuscular Volume 101.7 fL (78.0-98.0); Platelet Count 122 10x3/uL (130-400); Red Blood Cell (RBC) Count 2.89 mill/uL (4.70-6.10); White Blood Cell (WBC) Count 5.51 10x3/uL (4.8-10.8)
[2025-05-01 07:00] LABS: Macrocytosis SLIGHT = 6-15 cells HPF (0-5); Platelet Adequacy Comment Platelets Decreased; Smudge Cells 1.9 %
[2025-05-01] MEDS: Lisinopril 20 MG TAB PO SCH (08:17)
[2025-05-01] MEDS: Metoprolol Succinate XL 25 MG ER.TAB PO SCH (08:17)
[2025-05-01] MEDS ORDERED: Metoprolol Succinate XL 25 MG ER.TAB PO SCH (09:00)
[2025-05-01] MEDS ORDERED: Ketamine In 0.9 % NaCl 50 MG/5 ML SYRINGE ONE (14:15)
[2025-05-01] MEDS ORDERED: fentaNYL PF 100 MCG/2 ML SYRINGE ONE (14:15)
[2025-05-01] MEDS ORDERED: Ondansetron PF 4 MG/2 ML Vial ONE (14:15)
[2025-05-01] MEDS ORDERED: Lidocaine 1% PF 5 ML VIAL ONE (14:15)
[2025-05-01] MEDS ORDERED: Rocuronium Bromide 10 MG/ML (10ML VIAL) ONE (14:15)
[2025-05-01] MEDS ORDERED: Etomidate 40 MG (20 mL) VIAL ONE (14:15)
[2025-05-01] MEDS ORDERED: SUCCINYLCHOLINE/SOD CL,ISO/PF 200 MG/10 ML SYRINGE FS ONE (14:20)
[2025-05-01] MEDS ORDERED: Phenylephrine 40 MG/NS 250 ML 250 ML ONE (14:56)
[2025-05-01] MEDS ORDERED: NOREPINEPHRINE 8 MG/250 ML-D5W 250 ML ONE (14:56)
[2025-05-01] MEDS ORDERED: Propofol BOLUS 1,000 MG/100 ML VIAL IV PRN (17:30)
[2025-05-01] MEDS ORDERED: Fentanyl BOLUS 100 ML IVPB PRN (17:30)
[2025-05-01 17:50] LABS: Base Excess (BEa) -12.4 mEq/L (-2.0 to +3.0); CO2 Tension 34.9 mmHg (35.0-45.0); Calcium, Ionized (arterial) 1.10 mmol/L (1.12-1.30); Hematocrit-ABG 33 % (42.0-52.0); Hemoglobin (Hb) 11.2 g/dL (14.0-18.0); O2 Tension (PaO2), arterial 223.7 mmHg (> 60.0); Potassium - ABG Lab 4.03 mmol/L (3.70-5.30); pH, Arterial 7.228 (7.35-7.45)
[2025-05-01 17:56] LABS: Actual Bicarbonate (HCO3a) 14.2 mEq/L (22-28)
[2025-05-01] MEDS: Sodium Bicarb 50 MEQ/50 ML Abboject 8.4% SYRINGE IVP SCH (18:28)
[2025-05-02 04:04] LABS: ALT (SGPT) 18 U/L (Less than 45); AST (SGOT) 22 U/L (11-34); Albumin 2.4 g/dL (3.1-4.5); Alkaline Phosphatase 37 U/L (40-110); Anion Gap 18 mmol/L (10-20); BUN (Urea Nitrogen) 64 mg/dL (8.4-25.7); Bilirubin, Total 0.8 mg/dL (0.3-1.2); Calc. Creatinine Clearance 16 mL/min (70-130); Calcium 7.7 mg/dL (7.8-10.44); Carbon Dioxide 15 mmol/L (23-31); Chloride 115 mmol/L (98-107); Globulin 3.1 g/dL (2.4-3.5); Glucose 88 mg/dL (83-110); Potassium 4.3 mmol/L (3.5-5.1); Sodium 144 mmol/L (136-145)
[2025-05-02 04:09] LABS: Hematocrit 26.2 % (42.0-52.0); Hemoglobin 8.8 g/dL (14.0-18.0); Mean Corpuscular Hemoglobin 33.7 pg (27.0-31.0); Mean Corpuscular Volume 100.4 fL (78.0-98.0); Platelet Count 97 10x3/uL (130-400); Red Blood Cell (RBC) Count 2.61 mill/uL (4.70-6.10); White Blood Cell (WBC) Count 3.16 10x3/uL (4.8-10.8)
[2025-05-02 05:14] VITALS: BMI 23.4
[2025-05-02 05:15] LABS: Anisocytosis SLIGHT = 6-15 cells HPF (0-5); Macrocytosis SLIGHT = 6-15 cells HPF (0-5); Platelet Adequacy Comment Platelets Decreased; Polychromasia SLIGHT = 2-3 cells HPF (0-2); Smudge Cells 0.9 %
[2025-05-02] MEDS: Albumin 25% 25 GM (100 mL) BOT IVPB SCH (08:32)
[2025-05-02 14:25] LABS: Anion Gap 18 mmol/L (10-20); BUN (Urea Nitrogen) 71 mg/dL (8.4-25.7); Calc. Creatinine Clearance 18 mL/min (70-130); Calcium 8.1 mg/dL (7.8-10.44); Carbon Dioxide 16 mmol/L (23-31); Chloride 116 mmol/L (98-107); Glucose 95 mg/dL (83-110); Potassium 4.6 mmol/L (3.5-5.1); Sodium 145 mmol/L (136-145)
[2025-05-03 03:32] LABS: Hematocrit 28.0 % (42.0-52.0); Hemoglobin 9.0 g/dL (14.0-18.0); Mean Corpuscular Hemoglobin 33.3 pg (27.0-31.0); Mean Corpuscular Volume 103.7 fL (78.0-98.0); Platelet Count 108 10x3/uL (130-400); Red Blood Cell (RBC) Count 2.70 mill/uL (4.70-6.10); White Blood Cell (WBC) Count 6.24 10x3/uL (4.8-10.8)
[2025-05-03 03:54] LABS: Anion Gap 17 mmol/L (10-20); BUN (Urea Nitrogen) 76 mg/dL (8.4-25.7); Calc. Creatinine Clearance 20 mL/min (70-130); Calcium 8.7 mg/dL (7.8-10.44); Carbon Dioxide 17 mmol/L (23-31); Chloride 115 mmol/L (98-107); Glucose 102 mg/dL (83-110); Potassium 4.4 mmol/L (3.5-5.1); Sodium 145 mmol/L (136-145)
[2025-05-03 04:09] LABS: Macrocytosis SLIGHT = 6-15 cells HPF (0-5); Platelet Adequacy Comment Platelets Decreased; Smudge Cells 1.0 %
[2025-05-03] MEDS: Heparin 5,000 UNITS/ML VIAL SC SCH (08:39)
[2025-05-03] MEDS: oxyCODONE 5 MG TAB PO PRN (12:26)
[2025-05-03] MEDS: Ondansetron PF 4 MG/2 ML Vial IVP PRN (12:37)
[2025-05-04 04:35] LABS: Hematocrit 33.2 % (42.0-52.0); Hemoglobin 10.7 g/dL (14.0-18.0); Mean Corpuscular Hemoglobin 33.2 pg (27.0-31.0); Mean Corpuscular Volume 103.1 fL (78.0-98.0); Platelet Count 166 10x3/uL (130-400); Red Blood Cell (RBC) Count 3.22 mill/uL (4.70-6.10); White Blood Cell (WBC) Count 17.34 10x3/uL (4.8-10.8)
[2025-05-04 04:40] LABS: Anion Gap 19 mmol/L (10-20); BUN (Urea Nitrogen) 86 mg/dL (8.4-25.7); Calc. Creatinine Clearance 21 mL/min (70-130); Calcium 9.4 mg/dL (7.8-10.44); Carbon Dioxide 17 mmol/L (23-31); Chloride 113 mmol/L (98-107); Glucose 133 mg/dL (83-110); Potassium 4.2 mmol/L (3.5-5.1); Sodium 145 mmol/L (136-145)
[2025-05-04 05:09] LABS: Platelet Adequacy Comment Platelets Normal; RBC Morphology Within Normal Limits; Smudge Cells 1.0 %
[2025-05-04] MEDS: Metoprolol Tartrate 5 MG (5 mL) VIAL IVP SCH ×3 (06:58→20:49)
[2025-05-04] MEDS: Furosemide 20 MG (2 mL) VIAL SLOW IVP SCH (13:16)
[2025-05-04] MEDS: Ipratropium Bromide 2.5 ml Neb NEB SCH (20:50)
[2025-05-04 21:11] LABS: Actual Bicarbonate (HCO3a) 18.3 mEq/L (22-28); Base Excess (BEa) -3.2 mEq/L (-2.0 to +3.0); Calcium, Ionized (arterial) 1.15 mmol/L (1.12-1.30); Hematocrit-ABG 32 % (42.0-52.0); Hemoglobin (Hb) 11.0 g/dL (14.0-18.0); Potassium - ABG Lab 4.03 mmol/L (3.70-5.30); pH, Arterial 7.516 (7.35-7.45)
[2025-05-04 21:12] LABS: ALV-art Gradient 196.700 mmHg (0-20); Puncture Site Right Brachial art
[2025-05-04] MEDS: Furosemide 40 MG (4 mL) VIAL SLOW IVP SCH (21:19)
[2025-05-04 22:08] LABS: #Basophils 0.09 10x3/uL (0.0-0.2); #Eosinophils 0.05 10x3/uL (0.0-0.7); #Monocytes 1.23 10x3/uL (0.11-0.59); #Neutrophils 15.03 10x3/uL (1.40-6.50); %Basophils 0.5 % (0.0-1.0); %Eosinophils 0.3 % (0.0-10.0); %Lymphocytes 8.0 % (21.0-51.0); %Monocytes 6.8 % (0.0-10.0); %Neutrophils 83.2 % (42.0-75.0); Hematocrit 33.0 % (42.0-52.0); Hemoglobin 10.2 g/dL (14.0-18.0); Mean Corpuscular Hemoglobin 33.2 pg (27.0-31.0); Mean Corpuscular Volume 107.5 fL (78.0-98.0); Platelet Count 124 10x3/uL (130-400); Red Blood Cell (RBC) Count 3.07 mill/uL (4.70-6.10); White Blood Cell (WBC) Count 18.07 10x3/uL (4.8-10.8)
[2025-05-04 22:39] LABS: ALT (SGPT) 343 U/L (Less than 45); AST (SGOT) 290 U/L (11-34); Albumin 2.9 g/dL (3.1-4.5); Alkaline Phosphatase 81 U/L (40-110); Anion Gap 22 mmol/L (10-20); BUN (Urea Nitrogen) 101 mg/dL (8.4-25.7); Bilirubin, Total 0.8 mg/dL (0.3-1.2); Calc. Creatinine Clearance 21 mL/min (70-130); Calcium 9.2 mg/dL (7.8-10.44); Carbon Dioxide 13 mmol/L (23-31); Chloride 116 mmol/L (98-107); Globulin 4.0 g/dL (2.4-3.5); Glucose 111 mg/dL (83-110); Potassium 5.2 mmol/L (3.5-5.1); Sodium 146 mmol/L (136-145)
[2025-05-05 04:38] LABS: #Basophils 0.04 10x3/uL (0.0-0.2); #Eosinophils 0.03 10x3/uL (0.0-0.7); #Monocytes 1.21 10x3/uL (0.11-0.59); #Neutrophils 15.24 10x3/uL (1.40-6.50); %Basophils 0.2 % (0.0-1.0); %Eosinophils 0.2 % (0.0-10.0); %Lymphocytes 8.8 % (21.0-51.0); %Monocytes 6.6 % (0.0-10.0); %Neutrophils 82.8 % (42.0-75.0); Hematocrit 31.5 % (42.0-52.0); Hemoglobin 10.6 g/dL (14.0-18.0); Mean Corpuscular Hemoglobin 33.3 pg (27.0-31.0); Mean Corpuscular Volume 99.1 fL (78.0-98.0); Platelet Count 142 10x3/uL (130-400); Red Blood Cell (RBC) Count 3.18 mill/uL (4.70-6.10); White Blood Cell (WBC) Count 18.39 10x3/uL (4.8-10.8)
[2025-05-05 04:52] LABS: Anion Gap 22 mmol/L (10-20); BUN (Urea Nitrogen) 109 mg/dL (8.4-25.7); Calc. Creatinine Clearance 21 mL/min (70-130); Calcium 8.8 mg/dL (7.8-10.44); Carbon Dioxide 17 mmol/L (23-31); Chloride 114 mmol/L (98-107); Glucose 106 mg/dL (83-110); Potassium 3.9 mmol/L (3.5-5.1); Sodium 149 mmol/L (136-145)
[2025-05-05] MEDS ORDERED: Furosemide 100 MG (10 mL) VIAL SLOW IVP SCH (09:15)
[2025-05-05] MEDS: Furosemide 40 MG (4 mL) VIAL ONE (09:15)
[2025-05-05] MEDS: Furosemide 40 MG (4 mL) VIAL SLOW IVP SCH (09:16)
[2025-05-05] MEDS: Metoprolol Tartrate 5 MG (5 mL) VIAL IVP SCH (11:09)
[2025-05-05] MEDS: Phenylephrine 40 MG/NS 250 ML 250 ML IVPB SCH (13:37)
[2025-05-05 23:46] LABS: #Basophils 0.03 10x3/uL (0.0-0.2); #Eosinophils Less than 0.03 10x3/uL (0.0-0.7); #Monocytes 1.02 10x3/uL (0.11-0.59); #Neutrophils 14.23 10x3/uL (1.40-6.50); %Basophils 0.2 % (0.0-1.0); %Eosinophils 0.0 % (0.0-10.0); %Lymphocytes 9.1 % (21.0-51.0); %Monocytes 5.9 % (0.0-10.0); %Neutrophils 82.4 % (42.0-75.0); Hematocrit 25.3 % (42.0-52.0); Hemoglobin 8.4 g/dL (14.0-18.0); Mean Corpuscular Hemoglobin 33.7 pg (27.0-31.0); Mean Corpuscular Volume 101.6 fL (78.0-98.0); Platelet Count 131 10x3/uL (130-400); Red Blood Cell (RBC) Count 2.49 mill/uL (4.70-6.10); White Blood Cell (WBC) Count 17.27 10x3/uL (4.8-10.8)
[2025-05-06 00:06] LABS: ALT (SGPT) 174 U/L (Less than 45); AST (SGOT) 72 U/L (11-34); Albumin 2.4 g/dL (3.1-4.5); Alkaline Phosphatase 74 U/L (40-110); Anion Gap 17 mmol/L (10-20); BUN (Urea Nitrogen) 119 mg/dL (8.4-25.7); Bilirubin, Total 0.8 mg/dL (0.3-1.2); Calc. Creatinine Clearance 22 mL/min (70-130); Calcium 8.6 mg/dL (7.8-10.44); Carbon Dioxide 26 mmol/L (23-31); Chloride 113 mmol/L (98-107); Globulin 3.2 g/dL (2.4-3.5); Glucose 118 mg/dL (83-110); Potassium 3.2 mmol/L (3.5-5.1); Sodium 153 mmol/L (136-145)
[2025-05-06] MEDS: Furosemide 20 MG (2 mL) VIAL SLOW IVP SCH ×2 (01:16→08:30)
[2025-05-06 06:13] LABS: #Basophils 0.04 10x3/uL (0.0-0.2); #Eosinophils Less than 0.03 10x3/uL (0.0-0.7); #Monocytes 0.87 10x3/uL (0.11-0.59); #Neutrophils 13.35 10x3/uL (1.40-6.50); %Basophils 0.3 % (0.0-1.0); %Eosinophils 0.1 % (0.0-10.0); %Lymphocytes 7.9 % (21.0-51.0); %Monocytes 5.5 % (0.0-10.0); %Neutrophils 84.1 % (42.0-75.0); Hematocrit 28.1 % (42.0-52.0); Hemoglobin 9.2 g/dL (14.0-18.0); Mean Corpuscular Hemoglobin 32.5 pg (27.0-31.0); Mean Corpuscular Volume 99.3 fL (78.0-98.0); Platelet Count 121 10x3/uL (130-400); Red Blood Cell (RBC) Count 2.83 mill/uL (4.70-6.10); White Blood Cell (WBC) Count 15.87 10x3/uL (4.8-10.8)
[2025-05-06 06:25] LABS: Anion Gap 14 mmol/L (10-20); BUN (Urea Nitrogen) 116 mg/dL (8.4-25.7); Calc. Creatinine Clearance 22 mL/min (70-130); Calcium 8.3 mg/dL (7.8-10.44); Carbon Dioxide 27 mmol/L (23-31); Chloride 114 mmol/L (98-107); Glucose 120 mg/dL (83-110); Potassium 3.3 mmol/L (3.5-5.1); Sodium 152 mmol/L (136-145)
[2025-05-06] MEDS: Pantoprazole 40 MG VIAL IVP SCH (08:30)
[2025-05-06 15:48] LABS: Anion Gap 14 mmol/L (10-20); BUN (Urea Nitrogen) 105 mg/dL (8.4-25.7); Calc. Creatinine Clearance 24 mL/min (70-130); Calcium 8.3 mg/dL (7.8-10.44); Carbon Dioxide 28 mmol/L (23-31); Chloride 112 mmol/L (98-107); Glucose 120 mg/dL (83-110); Potassium 3.2 mmol/L (3.5-5.1); Sodium 151 mmol/L (136-145)
[2025-05-06] MEDS: Albumin 25% 25 GM (100 mL) BOT IVPB SCH (23:57)
[2025-05-07 00:18] LABS: #Basophils 0.04 10x3/uL (0.0-0.2); #Eosinophils 0.07 10x3/uL (0.0-0.7); #Monocytes 1.02 10x3/uL (0.11-0.59); #Neutrophils 18.54 10x3/uL (1.40-6.50); %Basophils 0.2 % (0.0-1.0); %Eosinophils 0.3 % (0.0-10.0); %Lymphocytes 8.5 % (21.0-51.0); %Monocytes 4.6 % (0.0-10.0); %Neutrophils 84.4 % (42.0-75.0); Hematocrit 27.3 % (42.0-52.0); Hemoglobin 9.0 g/dL (14.0-18.0); Mean Corpuscular Hemoglobin 32.6 pg (27.0-31.0); Mean Corpuscular Volume 98.9 fL (78.0-98.0); Platelet Count 139 10x3/uL (130-400); Red Blood Cell (RBC) Count 2.76 mill/uL (4.70-6.10); White Blood Cell (WBC) Count 21.98 10x3/uL (4.8-10.8)
[2025-05-07 00:51] LABS: Anion Gap 13 mmol/L (10-20); BUN (Urea Nitrogen) 101 mg/dL (8.4-25.7); Calc. Creatinine Clearance 25 mL/min (70-130); Calcium 8.2 mg/dL (7.8-10.44); Carbon Dioxide 26 mmol/L (23-31); Chloride 110 mmol/L (98-107); Glucose 115 mg/dL (83-110); Potassium 3.1 mmol/L (3.5-5.1); Sodium 146 mmol/L (136-145)
[2025-05-07] MEDS: Potassium Chloride 20 MEQ in Premix 1 BAG IVPB SCH (01:09)
[2025-05-07 06:08] LABS: #Basophils 0.07 10x3/uL (0.0-0.2); #Eosinophils 0.11 10x3/uL (0.0-0.7); #Monocytes 1.14 10x3/uL (0.11-0.59); #Neutrophils 18.92 10x3/uL (1.40-6.50); %Basophils 0.3 % (0.0-1.0); %Eosinophils 0.5 % (0.0-10.0); %Lymphocytes 9.2 % (21.0-51.0); %Monocytes 5.0 % (0.0-10.0); %Neutrophils 82.9 % (42.0-75.0); Hematocrit 30.0 % (42.0-52.0); Hemoglobin 8.7 g/dL (14.0-18.0); Mean Corpuscular Hemoglobin 33.2 pg (27.0-31.0); Mean Corpuscular Volume 114.5 fL (78.0-98.0); Platelet Count 160 10x3/uL (130-400); Red Blood Cell (RBC) Count 2.62 mill/uL (4.70-6.10); White Blood Cell (WBC) Count 22.82 10x3/uL (4.8-10.8)
[2025-05-07 06:18] LABS: Anion Gap 11 mmol/L (10-20); BUN (Urea Nitrogen) 93 mg/dL (8.4-25.7); Calc. Creatinine Clearance 26 mL/min (70-130); Calcium 8.3 mg/dL (7.8-10.44); Carbon Dioxide 26 mmol/L (23-31); Chloride 112 mmol/L (98-107); Glucose 97 mg/dL (83-110); Potassium 3.7 mmol/L (3.5-5.1); Sodium 145 mmol/L (136-145)
[2025-05-07] MEDS: MAGIC MOUTH WASH W/NYSTATIN SUSP 10 ML UDCUP SSP PRN (06:30)
[2025-05-07] MEDS: NOREPINEPHRINE 8 MG/250 ML-D5W 250 ML IVPB SCH (08:20)
[2025-05-07 08:40] LABS: INR-International Normal Ratio 1.5; Prothrombin Time 18.3 sec (12.0-14.7)
[2025-05-07 08:41] LABS: PTT 31.2 sec (22.9-36.1)
[2025-05-07 08:50] LABS: Cardiac Risk 4.4 (Less than 4.5); Cholesterol 80 mg/dl (< 200 Desired); HDL Cholesterol 18 mg/dL (>60 Neg Risk); LDL Cholesterol, Calculated 36 mg/dL; Magnesium 1.9 mg/dL (1.6-2.6); Triglycerides 131 mg/dL (Less than 150)
[2025-05-07] MEDS: Magnesium 2 GM/50 ML(in water) 2 GM in Premix 1 BAG IVPB SCH (09:50)
[2025-05-07] MEDS: Lidocaine 4% PF 5 ML AMP NEB SCH (19:28)
[2025-05-08 05:41] LABS: #Basophils 0.04 10x3/uL (0.0-0.2); #Eosinophils 0.15 10x3/uL (0.0-0.7); #Monocytes 0.62 10x3/uL (0.11-0.59); #Neutrophils 13.90 10x3/uL (1.40-6.50); %Basophils 0.2 % (0.0-1.0); %Eosinophils 0.9 % (0.0-10.0); %Lymphocytes 7.6 % (21.0-51.0); %Monocytes 3.8 % (0.0-10.0); %Neutrophils 86.1 % (42.0-75.0); Hematocrit 26.6 % (42.0-52.0); Hemoglobin 8.5 g/dL (14.0-18.0); Mean Corpuscular Hemoglobin 32.0 pg (27.0-31.0); Mean Corpuscular Volume 100.0 fL (78.0-98.0); Platelet Count 124 10x3/uL (130-400); Red Blood Cell (RBC) Count 2.66 mill/uL (4.70-6.10); White Blood Cell (WBC) Count 16.16 10x3/uL (4.8-10.8)
[2025-05-08 05:47] LABS: Anion Gap 13 mmol/L (10-20); BUN (Urea Nitrogen) 68 mg/dL (8.4-25.7); Calc. Creatinine Clearance 32 mL/min (70-130); Calcium 8.0 mg/dL (7.8-10.44); Carbon Dioxide 21 mmol/L (23-31); Chloride 112 mmol/L (98-107); Glucose 124 mg/dL (83-110); Magnesium 2.2 mg/dL (1.6-2.6); Potassium 3.3 mmol/L (3.5-5.1); Sodium 143 mmol/L (136-145)
[2025-05-08 06:07] LABS: Macrocytosis SLIGHT = 6-15 cells HPF (0-5); Platelet Adequacy Comment Platelets Decreased; Polychromasia SLIGHT = 2-3 cells HPF (0-2)
[2025-05-08] MEDS: Potassium Chloride 20 MEQ in Premix 1 BAG IVPB SCH (07:54)
[2025-05-08 17:29] LABS: Potassium 3.7 mmol/L (3.5-5.1)
[2025-05-08] MEDS: Amiodarone 200 MG TAB PO SCH (20:49)
[2025-05-09 05:22] LABS: #Basophils 0.04 10x3/uL (0.0-0.2); #Eosinophils 0.22 10x3/uL (0.0-0.7); #Monocytes 0.77 10x3/uL (0.11-0.59); #Neutrophils 16.39 10x3/uL (1.40-6.50); %Basophils 0.2 % (0.0-1.0); %Eosinophils 1.2 % (0.0-10.0); %Lymphocytes 5.7 % (21.0-51.0); %Monocytes 4.1 % (0.0-10.0); %Neutrophils 87.3 % (42.0-75.0); Hematocrit 25.4 % (42.0-52.0); Hemoglobin 8.1 g/dL (14.0-18.0); Mean Corpuscular Hemoglobin 32.9 pg (27.0-31.0); Mean Corpuscular Volume 103.3 fL (78.0-98.0); Platelet Count 138 10x3/uL (130-400); Red Blood Cell (RBC) Count 2.46 mill/uL (4.70-6.10); White Blood Cell (WBC) Count 18.78 10x3/uL (4.8-10.8)
[2025-05-09 05:49] LABS: Anion Gap 10 mmol/L (10-20); BUN (Urea Nitrogen) 53 mg/dL (8.4-25.7); Calc. Creatinine Clearance 43 mL/min (70-130); Calcium 7.6 mg/dL (7.8-10.44); Carbon Dioxide 21 mmol/L (23-31); Chloride 113 mmol/L (98-107); Glucose 109 mg/dL (83-110); Potassium 3.7 mmol/L (3.5-5.1); Sodium 140 mmol/L (136-145)
[2025-05-09] MEDS ORDERED: Etomidate 40 MG (20 mL) VIAL ONE ×2 (11:21→11:39)
[2025-05-09] MEDS: Lidocaine 2% Viscous Solution 10 ML, Aluminum & Magnesium Hydroxide 30 ML SSW SCH (19:52)
[2025-05-10 04:23] LABS: #Basophils Less than 0.03 10x3/uL (0.0-0.2); #Eosinophils 0.28 10x3/uL (0.0-0.7); #Monocytes 0.80 10x3/uL (0.11-0.59); #Neutrophils 12.17 10x3/uL (1.40-6.50); %Basophils 0.1 % (0.0-1.0); %Eosinophils 1.9 % (0.0-10.0); %Lymphocytes 8.0 % (21.0-51.0); %Monocytes 5.5 % (0.0-10.0); %Neutrophils 83.3 % (42.0-75.0); Hematocrit 26.1 % (42.0-52.0); Hemoglobin 8.4 g/dL (14.0-18.0); Mean Corpuscular Hemoglobin 33.1 pg (27.0-31.0); Mean Corpuscular Volume 102.8 fL (78.0-98.0); Platelet Count 158 10x3/uL (130-400); Red Blood Cell (RBC) Count 2.54 mill/uL (4.70-6.10); White Blood Cell (WBC) Count 14.61 10x3/uL (4.8-10.8)
[2025-05-10 04:34] LABS: Anion Gap 9 mmol/L (10-20); BUN (Urea Nitrogen) 49 mg/dL (8.4-25.7); Calc. Creatinine Clearance 44 mL/min (70-130); Calcium 8.0 mg/dL (7.8-10.44); Carbon Dioxide 20 mmol/L (23-31); Chloride 111 mmol/L (98-107); Glucose 111 mg/dL (83-110); Potassium 3.4 mmol/L (3.5-5.1); Sodium 137 mmol/L (136-145)
[2025-05-10] MEDS: Potassium Chloride 20 MEQ in Premix 1 BAG IVPB SCH (08:57)
[2025-05-10] MEDS: Acetaminophen 325 MG TAB PO PRN (08:58)
[2025-05-10 12:36] LABS: Potassium 3.7 mmol/L (3.5-5.1)
[2025-05-10 14:29] VITALS: BMI 24.2
[2025-05-11 05:25] LABS: AST (SGOT) 70 U/L (11-34); Albumin 1.8 g/dL (3.1-4.5); Alkaline Phosphatase 85 U/L (40-110); Anion Gap 9 mmol/L (10-20); BUN (Urea Nitrogen) 43 mg/dL (8.4-25.7); Bilirubin, Total 1.0 mg/dL (0.3-1.2); Calc. Creatinine Clearance 47 mL/min (70-130); Calcium 7.9 mg/dL (7.8-10.44); Carbon Dioxide 20 mmol/L (23-31); Chloride 113 mmol/L (98-107); Globulin 3.2 g/dL (2.4-3.5); Glucose 113 mg/dL (83-110); Magnesium 1.7 mg/dL (1.6-2.6); Potassium 3.7 mmol/L (3.5-5.1); Sodium 138 mmol/L (136-145)
[2025-05-11 05:34] LABS: #Basophils 0.03 10x3/uL (0.0-0.2); #Eosinophils 0.19 10x3/uL (0.0-0.7); #Monocytes 1.26 10x3/uL (0.11-0.59); #Neutrophils 13.62 10x3/uL (1.40-6.50); %Basophils 0.2 % (0.0-1.0); %Eosinophils 1.2 % (0.0-10.0); %Lymphocytes 6.6 % (21.0-51.0); %Monocytes 7.7 % (0.0-10.0); %Neutrophils 83.0 % (42.0-75.0); Hematocrit 26.2 % (42.0-52.0); Hemoglobin 8.1 g/dL (14.0-18.0); Mean Corpuscular Hemoglobin 33.2 pg (27.0-31.0); Mean Corpuscular Volume 107.4 fL (78.0-98.0); Platelet Count 174 10x3/uL (130-400); Red Blood Cell (RBC) Count 2.44 mill/uL (4.70-6.10); White Blood Cell (WBC) Count 16.41 10x3/uL (4.8-10.8)
[2025-05-11] MEDS ORDERED: AMINO ACID IV SCH (06:00)
[2025-05-11 06:01] LABS: ALT (SGPT) 98 U/L (Less than 45)
[2025-05-11] MEDS: Lisinopril 2.5 MG TAB PO SCH (08:56)
[2025-05-11] MEDS: Magnesium 2 GM/50 ML(in water) 2 GM in Premix 1 BAG IVPB SCH (08:57)
[2025-05-11 13:04] LABS: CAUTI Indications for Culture Dysuria,urgency,freq; Glucose, Urine (Dipstick) Normal (Negative); Leukocyte Negative Leu/uL (Negative); Protein, Urine (Dipstick) 10 mg/dL (Neg-Trace); RBC/HPF 0-3 HPF (0-3); Specific Gravity, Urine 1.017 (1.002-1.036); WBC/HPF 0-3 HPF (0-3)
[2025-05-11 13:05] LABS: Bacteria/HPF 1+ HPF (None Seen)
[2025-05-11 13:06] LABS: Urine Culture Reflex No No
[2025-05-11] MEDS ORDERED: Carvedilol 3.125 MG TAB PO SCH (17:00)
[2025-05-11] MEDS: Carvedilol 6.25 MG TAB PO SCH (17:06)
[2025-05-11] MEDS: oxyCODONE 5 MG TAB PO SCH (21:06)
[2025-05-11] MEDS: Melatonin 3 MG TAB PO PRN (21:07)
[2025-05-12 05:13] LABS: #Basophils 0.04 10x3/uL (0.0-0.2); #Eosinophils 0.26 10x3/uL (0.0-0.7); #Monocytes 1.09 10x3/uL (0.11-0.59); #Neutrophils 13.78 10x3/uL (1.40-6.50); %Basophils 0.2 % (0.0-1.0); %Eosinophils 1.6 % (0.0-10.0); %Lymphocytes 7.3 % (21.0-51.0); %Monocytes 6.6 % (0.0-10.0); %Neutrophils 83.5 % (42.0-75.0); Hematocrit 27.5 % (42.0-52.0); Hemoglobin 8.6 g/dL (14.0-18.0); Mean Corpuscular Hemoglobin 32.2 pg (27.0-31.0); Mean Corpuscular Volume 103.0 fL (78.0-98.0); Platelet Count 213 10x3/uL (130-400); Red Blood Cell (RBC) Count 2.67 mill/uL (4.70-6.10); White Blood Cell (WBC) Count 16.51 10x3/uL (4.8-10.8)
[2025-05-12 05:48] LABS: Anion Gap 10 mmol/L (10-20); BUN (Urea Nitrogen) 38 mg/dL (8.4-25.7); Calc. Creatinine Clearance 48 mL/min (70-130); Calcium 7.9 mg/dL (7.8-10.44); Carbon Dioxide 20 mmol/L (23-31); Chloride 111 mmol/L (98-107); Glucose 101 mg/dL (83-110); Potassium 3.8 mmol/L (3.5-5.1); Sodium 137 mmol/L (136-145)
[2025-05-12] MEDS ORDERED: Carvedilol 3.125 MG TAB PO SCH (08:00)
[2025-05-12] MEDS: Amiodarone 200 MG TAB PO SCH (08:29)
[2025-05-13 04:56] LABS: #Basophils 0.10 10x3/uL (0.0-0.2); #Eosinophils 0.12 10x3/uL (0.0-0.7); #Monocytes 1.22 10x3/uL (0.11-0.59); #Neutrophils 11.20 10x3/uL (1.40-6.50); %Basophils 0.7 % (0.0-1.0); %Eosinophils 0.9 % (0.0-10.0); %Lymphocytes 9.2 % (21.0-51.0); %Monocytes 8.7 % (0.0-10.0); %Neutrophils 79.5 % (42.0-75.0); Hematocrit 29.3 % (42.0-52.0); Hemoglobin 8.6 g/dL (14.0-18.0); Mean Corpuscular Hemoglobin 31.9 pg (27.0-31.0); Mean Corpuscular Volume 108.5 fL (78.0-98.0); Platelet Count 249 10x3/uL (130-400); Red Blood Cell (RBC) Count 2.70 mill/uL (4.70-6.10); White Blood Cell (WBC) Count 14.07 10x3/uL (4.8-10.8)
[2025-05-13 05:23] LABS: AST (SGOT) 56 U/L (11-34); Albumin 2.2 g/dL (3.1-4.5); Alkaline Phosphatase 110 U/L (40-110); Anion Gap 11 mmol/L (10-20); BUN (Urea Nitrogen) 33 mg/dL (8.4-25.7); Bilirubin, Total 1.0 mg/dL (0.3-1.2); Calc. Creatinine Clearance 43 mL/min (70-130); Calcium 8.5 mg/dL (7.8-10.44); Carbon Dioxide 19 mmol/L (23-31); Chloride 112 mmol/L (98-107); Globulin 3.5 g/dL (2.4-3.5); Glucose 105 mg/dL (83-110); Potassium 4.5 mmol/L (3.5-5.1); Sodium 137 mmol/L (136-145)
[2025-05-13 05:43] LABS: ALT (SGPT) 80 U/L (Less than 45)
[2025-05-13] MEDS ORDERED: Benzonatate 100 MG CAP PO PRN (06:36)
[2025-05-14 06:12] LABS: #Basophils 0.03 10x3/uL (0.0-0.2); #Eosinophils 0.11 10x3/uL (0.0-0.7); #Monocytes 0.92 10x3/uL (0.11-0.59); #Neutrophils 9.42 10x3/uL (1.40-6.50); %Basophils 0.3 % (0.0-1.0); %Eosinophils 0.9 % (0.0-10.0); %Lymphocytes 9.7 % (21.0-51.0); %Monocytes 7.9 % (0.0-10.0); %Neutrophils 80.4 % (42.0-75.0); Hematocrit 23.1 % (42.0-52.0); Hemoglobin 7.5 g/dL (14.0-18.0); Mean Corpuscular Hemoglobin 32.3 pg (27.0-31.0); Mean Corpuscular Volume 99.6 fL (78.0-98.0); Platelet Count 305 10x3/uL (130-400); Red Blood Cell (RBC) Count 2.32 mill/uL (4.70-6.10); White Blood Cell (WBC) Count 11.71 10x3/uL (4.8-10.8)
[2025-05-14 06:36] LABS: AST (SGOT) 36 U/L (11-34); Albumin 1.9 g/dL (3.1-4.5); Alkaline Phosphatase 100 U/L (40-110); Anion Gap 10 mmol/L (10-20); BUN (Urea Nitrogen) 30 mg/dL (8.4-25.7); Bilirubin, Total 0.7 mg/dL (0.3-1.2); Calc. Creatinine Clearance 48 mL/min (70-130); Calcium 8.0 mg/dL (7.8-10.44); Carbon Dioxide 21 mmol/L (23-31); Chloride 109 mmol/L (98-107); Globulin 3.4 g/dL (2.4-3.5); Glucose 109 mg/dL (83-110); Potassium 3.8 mmol/L (3.5-5.1); Sodium 136 mmol/L (136-145)
[2025-05-14 07:59] LABS: ALT (SGPT) 51 U/L (Less than 45)
[2025-05-14 23:19] LABS: Hemoglobin 8.9 g/dL (14.0-18.0)
[2025-05-14] MEDS ORDERED: Melatonin 3 MG TAB PO PRN (23:28)
[2025-05-15 06:02] LABS: AST (SGOT) 38 U/L (11-34); Albumin 2.0 g/dL (3.1-4.5); Alkaline Phosphatase 101 U/L (40-110); Anion Gap 10 mmol/L (10-20); BUN (Urea Nitrogen) 27 mg/dL (8.4-25.7); Bilirubin, Total 1.1 mg/dL (0.3-1.2); Calc. Creatinine Clearance 47 mL/min (70-130); Calcium 8.2 mg/dL (7.8-10.44); Carbon Dioxide 21 mmol/L (23-31); Chloride 107 mmol/L (98-107); Globulin 3.4 g/dL (2.4-3.5); Glucose 104 mg/dL (83-110); Potassium 4.2 mmol/L (3.5-5.1); Sodium 134 mmol/L (136-145)
[2025-05-15 06:23] LABS: ALT (SGPT) 45 U/L (Less than 45)
[2025-05-15 07:41] LABS: #Basophils 0.04 10x3/uL (0.0-0.2); #Eosinophils 0.10 10x3/uL (0.0-0.7); #Monocytes 0.71 10x3/uL (0.11-0.59); #Neutrophils 5.87 10x3/uL (1.40-6.50); %Basophils 0.5 % (0.0-1.0); %Eosinophils 1.3 % (0.0-10.0); %Lymphocytes 15.4 % (21.0-51.0); %Monocytes 8.9 % (0.0-10.0); %Neutrophils 73.3 % (42.0-75.0); Hematocrit 28.3 % (42.0-52.0); Hemoglobin 9.3 g/dL (14.0-18.0); Mean Corpuscular Hemoglobin 31.0 pg (27.0-31.0); Mean Corpuscular Volume 94.3 fL (78.0-98.0); Platelet Count 241 10x3/uL (130-400); Red Blood Cell (RBC) Count 3.00 mill/uL (4.70-6.10); White Blood Cell (WBC) Count 8.00 10x3/uL (4.8-10.8)
[2025-05-15 10:04] LABS: CO2 Tension 23.2 mmHg (35.0-45.0); O2 Tension (PaO2), arterial 59.5 mmHg (> 60.0)
[2025-05-16 06:59] LABS: AST (SGOT) 33 U/L (11-34); Albumin 2.1 g/dL (3.1-4.5); Alkaline Phosphatase 120 U/L (40-110); Anion Gap 11 mmol/L (10-20); BUN (Urea Nitrogen) 29 mg/dL (8.4-25.7); Bilirubin, Total 0.6 mg/dL (0.3-1.2); Calc. Creatinine Clearance 42 mL/min (70-130); Calcium 8.4 mg/dL (7.8-10.44); Carbon Dioxide 21 mmol/L (23-31); Chloride 106 mmol/L (98-107); Globulin 3.8 g/dL (2.4-3.5); Glucose 116 mg/dL (83-110); Potassium 4.1 mmol/L (3.5-5.1); Sodium 134 mmol/L (136-145)
[2025-05-16 07:09] LABS: #Basophils 0.04 10x3/uL (0.0-0.2); #Eosinophils 0.08 10x3/uL (0.0-0.7); #Monocytes 0.77 10x3/uL (0.11-0.59); #Neutrophils 6.98 10x3/uL (1.40-6.50); %Basophils 0.4 % (0.0-1.0); %Eosinophils 0.9 % (0.0-10.0); %Lymphocytes 14.9 % (21.0-51.0); %Monocytes 8.3 % (0.0-10.0); %Neutrophils 75.0 % (42.0-75.0); Hematocrit 30.9 % (42.0-52.0); Hemoglobin 10.0 g/dL (14.0-18.0); Mean Corpuscular Hemoglobin 30.9 pg (27.0-31.0); Mean Corpuscular Volume 95.4 fL (78.0-98.0); Platelet Count 258 10x3/uL (130-400); Red Blood Cell (RBC) Count 3.24 mill/uL (4.70-6.10); White Blood Cell (WBC) Count 9.31 10x3/uL (4.8-10.8)
[2025-05-16] MEDS: Enoxaparin 30 MG (0.3 mL) SYRINGE SC SCH (08:09)
[2025-05-16 08:49] LABS: ALT (SGPT) 39 U/L (Less than 45)
[2025-05-16] MEDS ORDERED: Heparin 5,000 UNITS/ML VIAL SC SCH (09:00)
[2025-05-16] MEDS: Lisinopril 2.5 MG TAB PO SCH (09:37)
[2025-05-16 20:46] LABS: Hemoglobin 9.5 g/dL (14.0-18.0)
[2025-05-17 06:01] LABS: #Basophils 0.05 10x3/uL (0.0-0.2); #Eosinophils 0.09 10x3/uL (0.0-0.7); #Monocytes 0.74 10x3/uL (0.11-0.59); #Neutrophils 7.59 10x3/uL (1.40-6.50); %Basophils 0.5 % (0.0-1.0); %Eosinophils 0.9 % (0.0-10.0); %Lymphocytes 15.0 % (21.0-51.0); %Monocytes 7.4 % (0.0-10.0); %Neutrophils 75.4 % (42.0-75.0); Hematocrit 29.3 % (42.0-52.0); Hemoglobin 9.4 g/dL (14.0-18.0); Mean Corpuscular Hemoglobin 30.7 pg (27.0-31.0); Mean Corpuscular Volume 95.8 fL (78.0-98.0); Platelet Count 269 10x3/uL (130-400); Red Blood Cell (RBC) Count 3.06 mill/uL (4.70-6.10); White Blood Cell (WBC) Count 10.06 10x3/uL (4.8-10.8)
[2025-05-17 06:16] LABS: AST (SGOT) 29 U/L (11-34); Albumin 2.0 g/dL (3.1-4.5); Alkaline Phosphatase 100 U/L (40-110); Anion Gap 10 mmol/L (10-20); BUN (Urea Nitrogen) 30 mg/dL (8.4-25.7); Bilirubin, Total 0.8 mg/dL (0.3-1.2); Calc. Creatinine Clearance 46 mL/min (70-130); Calcium 8.2 mg/dL (7.8-10.44); Carbon Dioxide 23 mmol/L (23-31); Chloride 104 mmol/L (98-107); Globulin 3.4 g/dL (2.4-3.5); Glucose 92 mg/dL (83-110); Potassium 4.6 mmol/L (3.5-5.1); Sodium 132 mmol/L (136-145)
[2025-05-17 06:37] LABS: ALT (SGPT) 38 U/L (Less than 45)
[2025-05-17] MEDS: Lisinopril 5 MG TAB PO SCH (09:04)
[2025-05-17] MEDS: Enoxaparin 40 MG (0.4 mL) SYRINGE SC SCH (09:07)
[2025-05-18] MEDS: diphenhydrAMINE 25 MG CAP PO PRN (01:13)
[2025-05-18 06:07] LABS: Anion Gap 10 mmol/L (10-20); BUN (Urea Nitrogen) 30 mg/dL (8.4-25.7); Calc. Creatinine Clearance 38 mL/min (70-130); Calcium 8.2 mg/dL (7.8-10.44); Carbon Dioxide 24 mmol/L (23-31); Chloride 102 mmol/L (98-107); Glucose 108 mg/dL (83-110); Magnesium 1.6 mg/dL (1.6-2.6); Potassium 4.3 mmol/L (3.5-5.1); Sodium 132 mmol/L (136-145)
[2025-05-18] MEDS: Magnesium 2 GM/50 ML(in water) 2 GM in Premix 1 BAG IVPB SCH (11:26)
[2025-05-19 07:55] LABS: #Basophils 0.06 10x3/uL (0.0-0.2); #Eosinophils 0.15 10x3/uL (0.0-0.7); #Monocytes 0.76 10x3/uL (0.11-0.59); #Neutrophils 7.61 10x3/uL (1.40-6.50); %Basophils 0.6 % (0.0-1.0); %Eosinophils 1.5 % (0.0-10.0); %Lymphocytes 14.9 % (21.0-51.0); %Monocytes 7.5 % (0.0-10.0); %Neutrophils 75.0 % (42.0-75.0); Hematocrit 31.3 % (42.0-52.0); Hemoglobin 9.8 g/dL (14.0-18.0); Mean Corpuscular Hemoglobin 30.7 pg (27.0-31.0); Mean Corpuscular Volume 98.1 fL (78.0-98.0); Platelet Count 255 10x3/uL (130-400); Red Blood Cell (RBC) Count 3.19 mill/uL (4.70-6.10); White Blood Cell (WBC) Count 10.14 10x3/uL (4.8-10.8)
[2025-05-19 08:14] LABS: AST (SGOT) 29 U/L (11-34); Albumin 2.1 g/dL (3.1-4.5); Alkaline Phosphatase 116 U/L (40-110); Anion Gap 13 mmol/L (10-20); BUN (Urea Nitrogen) 34 mg/dL (8.4-25.7); Bilirubin, Total 0.6 mg/dL (0.3-1.2); Calc. Creatinine Clearance 40 mL/min (70-130); Calcium 8.6 mg/dL (7.8-10.44); Carbon Dioxide 23 mmol/L (23-31); Chloride 102 mmol/L (98-107); Globulin 4.1 g/dL (2.4-3.5); Glucose 120 mg/dL (83-110); Potassium 4.8 mmol/L (3.5-5.1); Sodium 133 mmol/L (136-145)
[2025-05-19 08:34] LABS: Magnesium 1.8 mg/dL (1.6-2.6)
[2025-05-19 08:43] LABS: ALT (SGPT) 29 U/L (Less than 45)
[2025-05-19 11:06] VITALS: BP 115/60; TEMP 97.9
[2025-05-19] MEDS ORDERED: Magnesium 2 GM/50 ML(in water) 2 GM in Premix 1 BAG IVPB SCH (12:15)
== END 2025-05-19 11:43 | DRG 329 ==
LOC: ERS 16:31 → SURG B 18:27 → CCU 05-01 16:29 → SURG B 05-03 12:03 → 2NO 05-03 21:44 → IMCU/EMU 05-05 10:19 → CCU 05-05 20:31 → IMCU/EMU 05-08 12:08 → SURG B 05-10 10:43 → SURG A 05-13 04:40
PROVIDERS: ADMIT Surgery; ATTEND Internal Medicine
PROC: 3E03329 Introduction of Other Anti-infective into Peripheral Vein, Percutaneous Approach (ICD-10-PCS; 2025-04-30)
PROC: 0D1E0Z4 Bypass Large Intestine to Cutaneous, Open Approach (ICD-10-PCS; 2025-05-01)
PROC: 0DTN0ZZ Resection of Sigmoid Colon, Open Approach (ICD-10-PCS; 2025-05-01)
PROC: 4A133R1 Monitoring of Arterial Saturation, Peripheral, Percutaneous Approach (ICD-10-PCS; 2025-05-01)
PROC: 3E033XZ Introduction of Vasopressor into Peripheral Vein, Percutaneous Approach (ICD-10-PCS; 2025-05-01)
PROC: 30233J1 Transfusion of Nonautologous Serum Albumin into Peripheral Vein, Percutaneous Approach (ICD-10-PCS; 2025-05-02)
PROC: 5A09357 Assistance with Respiratory Ventilation, Less than 24 Consecutive Hours, Continuous Positive Airway Pressure (ICD-10-PCS; 2025-05-05)
PROC: 30233N1 Transfusion of Nonautologous Red Blood Cells into Peripheral Vein, Percutaneous Approach (ICD-10-PCS; 2025-05-06)
PROC: 5A0945A Assistance with Respiratory Ventilation, 24-96 Consecutive Hours, High Flow/Velocity Cannula (ICD-10-PCS; 2025-05-06)
PROC: 0DB58ZX Excision of Esophagus, Via Natural or Artificial Opening Endoscopic, Diagnostic (ICD-10-PCS; principal; 2025-05-09)
PROC: 0DB68ZX Excision of Stomach, Via Natural or Artificial Opening Endoscopic, Diagnostic (ICD-10-PCS; 2025-05-09)
DX: K57.20 Diverticulitis of large intestine with perforation and abscess without bleeding (principal); A41.9 Sepsis, unspecified organism; J95.821 Acute postprocedural respiratory failure; K65.1 Peritoneal abscess; N17.0 Acute kidney failure with tubular necrosis; R65.21 Severe sepsis with septic shock; G93.41 Metabolic encephalopathy; U07.1 COVID-19; E87.1 Hypo-osmolality and hyponatremia; D61.818 Other pancytopenia; E87.0 Hyperosmolality and hypernatremia; E87.20 Acidosis, unspecified; I42.9 Cardiomyopathy, unspecified; I47.20 Ventricular tachycardia, unspecified; E44.0 Moderate protein-calorie malnutrition; D62 Acute posthemorrhagic anemia; E78.5 Hyperlipidemia, unspecified; I25.10 Atherosclerotic heart disease of native coronary artery without angina pectoris; N18.9 Chronic kidney disease, unspecified; I12.9 Hypertensive chronic kidney disease with stage 1 through stage 4 chronic kidney disease, or unspecified chronic kidney disease; K21.9 Gastro-esophageal reflux disease without esophagitis; Z95.1 Presence of aortocoronary bypass graft; N40.0 Benign prostatic hyperplasia without lower urinary tract symptoms; D63.1 Anemia in chronic kidney disease; I48.0 Paroxysmal atrial fibrillation; Z51.5 Encounter for palliative care; I71.43 Infrarenal abdominal aortic aneurysm, without rupture
CPT/HCPCS: 36415; 36416; 36430; 36600; 71045; 74018; 74176; 80048; 80053; 80061; 81001; 82570; 82607; 82805; 83605; 83735; 83880; 84100; 84134; 85025; 85610; 85730; 86850; 86900; 86901; 87070; 87076; 87205; 88305; 88307; 93005; 93010; 93306; 94002; 94003; 94640; 94660; 96374; 97139; A4314; A4649; J0282; J1100; J1644; J1650; J1885; J1940; J2185; J2248; J2250; J2270; J2272; J2405; J2470; J2543; J2704; J3010; J3475; J3480; J3490; J7030; J7070; J7120; J7644; P9016; P9045; P9047